=== PATIENT | male | born 1980 | race African-American/Black ===

== ENCOUNTER 2018-07-01 14:39 | Outpatient (CLI) | payer OTHER | END 2018-07-01 14:40 | disposition home or self-care (01) | LOC: BICRAD 14:39 | PROVIDERS: ATTEND Internal Medicine | DX: Z02.71 Encounter for disability determination (principal); I51.7 Cardiomegaly | CPT/HCPCS: 71046 ==

== ENCOUNTER 2021-10-22 15:12 | Inpatient (IN) | payer SELFPAY ==
[2021-10-22 15:59] LABS: #Eosinphils 0.1 thou/uL (0.0-0.7); #Lymphocytes 1.6 thou/uL (1.20-3.40); #Monocytes 0.7 thou/uL (0.11-0.59); #Neutrophils 4.3 thou/uL (1.40-6.50); %Basophils 0.3 % (0.0-1.0); %Eosinophils 1.6 % (0.0-10.0); %Lymphocytes 24.1 % (21.0-51.0); %Monocytes 10.2 % (0.0-10.0); %Neutrophils 63.9 % (42.0-75.0); Hemoglobin 14.4 g/dL (14.0-18.0); Mean Corpuscular HGB CONC 31.5 g/dL (32.0-36.0); Mean Corpuscular Hemoglobin 30.3 pg (27.0-31.0); Mean Corpuscular Volume 96.4 fL (78.0-98.0); Mean Platelet Volume 7.7 fL (7.4-10.4); Platelet Count 226 thou/uL (130-400); RBC Distribution Width 12.6 % (11.5-14.5); Red Blood Cell (RBC) Count 4.74 mill/uL (4.70-6.10); White Blood Cell (WBC) Count 6.7 thou/uL (4.8-10.8)
[2021-10-22 16:19] LABS: ALT (SGPT) 30 U/L (8-55); AST (SGOT) 31 U/L (5-34); Albumin 3.2 g/dL (3.5-5.0); Alkaline Phosphatase 73 U/L (40-110); Anion Gap 11 mmol/L (10-20); BUN (Urea Nitrogen) 17 mg/dL (8.9-20.6); Calc. Creatinine Clearance 0 mL/min (70-130); Calcium 9.1 mg/dL (7.8-10.44); Carbon Dioxide 26 mmol/L (22-29); Chloride 109 mmol/L (98-107); Globulin 3.3 g/dL (2.4-3.5); Glucose 152 mg/dL (70-105); Potassium 3.9 mmol/L (3.5-5.1); Protein, Total 6.5 g/dL (6.0-8.3); Sodium 142 mmol/L (136-145)
[2021-10-22 16:23] LABS: CKMB 2.3 ng/mL (0-6.6)
[2021-10-22] MEDS ORDERED: Furosemide 40 MG/4 ML VIAL ONE (17:49)
[2021-10-22] MEDS ORDERED: Nitroglycerin 2% Ointment 1 INCH/1 GM Packet ONE (17:49)
[2021-10-22] MEDS ORDERED: Acetaminophen 500 MG TAB ONE (18:51)
[2021-10-22] MEDS ORDERED: Morphine 4 MG/ML VIAL ONE (19:30)
[2021-10-22] MEDS ORDERED: Ondansetron PF 4 MG/2 ML Vial ONE (19:30)
[2021-10-22] MEDS ORDERED: Acetaminophen 325 MG TAB PO PRN (20:05)
[2021-10-22] MEDS ORDERED: Ondansetron PF 4 MG/2 ML Vial IVP PRN (20:05)
[2021-10-22 21:27] LABS: Troponin I 0.055 ng/mL (< 0.028)
[2021-10-22] MEDS: hydrALAZINE 20 MG/ML VIAL SLOW IVP PRN (22:21)
[2021-10-22 22:57] VITALS: BMI 38.9
[2021-10-22] MEDS ORDERED: hydrALAZINE 20 MG/ML VIAL SLOW IVP SCH (23:45)
[2021-10-23 00:17] LABS: Troponin I 0.076 ng/mL (< 0.028)
[2021-10-23] MEDS ORDERED: Lorazepam 2 MG/ML VIAL SLOW IVP PRN (03:14)
[2021-10-23] MEDS: hydrALAZINE 20 MG/ML VIAL SLOW IVP PRN ×2 (04:37→13:45)
[2021-10-23 04:56] LABS: #Eosinphils 0.1 thou/uL (0.0-0.7); #Lymphocytes 1.8 thou/uL (1.20-3.40); #Monocytes 0.7 thou/uL (0.11-0.59); %Basophils 0.3 % (0.0-1.0); %Lymphocytes 27.5 % (21.0-51.0); %Monocytes 9.8 % (0.0-10.0); %Neutrophils 60.4 % (42.0-75.0); Hemoglobin 14.7 g/dL (14.0-18.0); Mean Corpuscular HGB CONC 32.4 g/dL (32.0-36.0); Mean Corpuscular Hemoglobin 31.5 pg (27.0-31.0); Mean Corpuscular Volume 97.1 fL (78.0-98.0); Mean Platelet Volume 7.9 fL (7.4-10.4); Platelet Count 216 thou/uL (130-400); RBC Distribution Width 12.7 % (11.5-14.5); Red Blood Cell (RBC) Count 4.66 mill/uL (4.70-6.10); White Blood Cell (WBC) Count 6.7 thou/uL (4.8-10.8)
[2021-10-23 05:03] LABS: Hemoglobin A1c 6.7 % (4.0-6.0)
[2021-10-23] MEDS: Furosemide 40 MG/4 ML VIAL SLOW IVP SCH ×2 (05:12→14:47)
[2021-10-23 05:24] LABS: Troponin I 0.054 ng/mL (< 0.028)
[2021-10-23 05:28] LABS: Anion Gap 10 mmol/L (10-20); BUN (Urea Nitrogen) 18 mg/dL (8.9-20.6); Calc. Creatinine Clearance 144 mL/min (70-130); Carbon Dioxide 28 mmol/L (22-29); Chloride 110 mmol/L (98-107); Glucose 153 mg/dL (70-105); Potassium 3.5 mmol/L (3.5-5.1); Sodium 144 mmol/L (136-145)
[2021-10-23 06:25] LABS: Amphetamine Not Detected (NotDetected); Barbiturates Screen Not Detected (NotDetected); Benzodiazepine Screen Not Detected (NotDetected); Cocaine Metabolite Screen Detected (NotDetected); Methadone Not Detected (NotDetected); Methamphetamine Not Detected (NotDetected); Opiate Screen Not Detected (NotDetected); Oxycodone Screen Not Detected (NotDetected); Phencyclidine (PCP) Not Detected (NotDetected); THC/Cannabinoid Screen Not Detected (NotDetected); Tricyclic Screen Not Detected (NotDetected)
[2021-10-23] MEDS: Amlodipine 10 MG TAB PO SCH (08:58)
[2021-10-23] MEDS: Enoxaparin Sodium 40 MG/0.4 ML SYRINGE SC SCH (08:58)
[2021-10-23] MEDS: Folic Acid 1 MG TAB PO SCH (08:58)
[2021-10-23] MEDS: Thiamine 100 MG TAB PO SCH (08:58)
[2021-10-23] MEDS: chlordiazePOXIDE HCl 25 MG CAP PO SCH ×3 (09:07→21:08)
[2021-10-23 14:11] LABS: SARS-CoV-2 PCR by NAA Not Detected (NotDetected)
[2021-10-23] MEDS ORDERED: cloNIDine 0.1 MG TAB PO SCH ×2 (15:00→21:00)
[2021-10-23] MEDS ORDERED: Spironolactone 25 MG TAB PO SCH (16:45)
[2021-10-24] MEDS: Furosemide 40 MG/4 ML VIAL SLOW IVP SCH ×2 (05:24→13:39)
[2021-10-24] MEDS ORDERED: Spironolactone 25 MG TAB PO SCH ×2 (08:00→13:00)
[2021-10-24] MEDS: Amlodipine 10 MG TAB PO SCH (08:11)
[2021-10-24] MEDS: Folic Acid 1 MG TAB PO SCH (08:11)
[2021-10-24] MEDS: Thiamine 100 MG TAB PO SCH (08:12)
[2021-10-24] MEDS: Enoxaparin Sodium 40 MG/0.4 ML SYRINGE SC SCH (08:15)
[2021-10-24] MEDS: chlordiazePOXIDE HCl 25 MG CAP PO SCH ×3 (08:22→20:23)
[2021-10-24 09:01] LABS: #Basophils 0.1 thou/uL (0.0-0.2); #Eosinphils 0.1 thou/uL (0.0-0.7); #Lymphocytes 1.5 thou/uL (1.20-3.40); #Monocytes 0.6 thou/uL (0.11-0.59); #Neutrophils 4.5 thou/uL (1.40-6.50); %Basophils 0.8 % (0.0-1.0); %Eosinophils 1.9 % (0.0-10.0); %Lymphocytes 22.4 % (21.0-51.0); %Neutrophils 65.8 % (42.0-75.0); Hemoglobin 15.2 g/dL (14.0-18.0); Mean Corpuscular HGB CONC 31.9 g/dL (32.0-36.0); Mean Corpuscular Volume 97.2 fL (78.0-98.0); Mean Platelet Volume 7.5 fL (7.4-10.4); Platelet Count 240 thou/uL (130-400); RBC Distribution Width 12.5 % (11.5-14.5); Red Blood Cell (RBC) Count 4.91 mill/uL (4.70-6.10); White Blood Cell (WBC) Count 6.9 thou/uL (4.8-10.8)
[2021-10-24 09:28] LABS: Anion Gap 13 mmol/L (10-20); BUN (Urea Nitrogen) 11 mg/dL (8.9-20.6); Calc. Creatinine Clearance 159 mL/min (70-130); Carbon Dioxide 25 mmol/L (22-29); Chloride 107 mmol/L (98-107); Glucose 148 mg/dL (70-105); Potassium 3.8 mmol/L (3.5-5.1); Sodium 141 mmol/L (136-145)
[2021-10-25 04:54] LABS: #Basophils 0.1 thou/uL (0.0-0.2); #Eosinphils 0.2 thou/uL (0.0-0.7); #Lymphocytes 1.9 thou/uL (1.20-3.40); #Monocytes 0.8 thou/uL (0.11-0.59); #Neutrophils 4.4 thou/uL (1.40-6.50); %Basophils 0.8 % (0.0-1.0); %Eosinophils 2.9 % (0.0-10.0); %Lymphocytes 25.4 % (21.0-51.0); %Monocytes 10.2 % (0.0-10.0); %Neutrophils 60.7 % (42.0-75.0); Hemoglobin 15.2 g/dL (14.0-18.0); Mean Corpuscular HGB CONC 32.6 g/dL (32.0-36.0); Mean Corpuscular Hemoglobin 31.5 pg (27.0-31.0); Mean Corpuscular Volume 96.5 fL (78.0-98.0); Mean Platelet Volume 7.9 fL (7.4-10.4); Platelet Count 236 thou/uL (130-400); RBC Distribution Width 12.4 % (11.5-14.5); Red Blood Cell (RBC) Count 4.82 mill/uL (4.70-6.10); White Blood Cell (WBC) Count 7.3 thou/uL (4.8-10.8)
[2021-10-25 05:08] LABS: Anion Gap 11 mmol/L (10-20); BUN (Urea Nitrogen) 13 mg/dL (8.9-20.6); Calc. Creatinine Clearance 157 mL/min (70-130); Calcium 8.7 mg/dL (7.8-10.44); Carbon Dioxide 24 mmol/L (22-29); Chloride 108 mmol/L (98-107); Glucose 166 mg/dL (70-105); Potassium 3.5 mmol/L (3.5-5.1); Sodium 139 mmol/L (136-145)
[2021-10-25] MEDS: Furosemide 40 MG/4 ML VIAL SLOW IVP SCH ×2 (05:56→16:14)
[2021-10-25] MEDS ORDERED: Spironolactone 25 MG TAB PO SCH (08:00)
[2021-10-25] MEDS ORDERED: FLU VACC QS2021-22(6MOS UP)/PF 60 MCG/0.5 ML SYRINGE IM ONE (09:00)
[2021-10-25] MEDS: chlordiazePOXIDE HCl 25 MG CAP PO SCH ×2 (09:56→16:14)
[2021-10-25] MEDS: Folic Acid 1 MG TAB PO SCH (09:56)
[2021-10-25] MEDS: Thiamine 100 MG TAB PO SCH (09:56)
[2021-10-25] MEDS: Carvedilol 3.125 MG TAB PO SCH ×2 (09:56→16:14)
[2021-10-25] MEDS: Enoxaparin Sodium 40 MG/0.4 ML SYRINGE SC SCH (09:56)
[2021-10-25] MEDS: Amlodipine 10 MG TAB PO SCH (09:58)
[2021-10-25] MEDS ORDERED: hydrALAZINE 25 MG TAB PO SCH ×3 (14:15→21:00)
[2021-10-25 16:21] VITALS: BP 148/98; TEMP 97.6
[2021-10-25] MEDS ORDERED: Carvedilol 3.125 MG TAB PO SCH (18:02)
[2021-10-26] MEDS ORDERED: Furosemide 20 MG TAB PO SCH (09:00)
== END 2021-10-25 18:23 | disposition home or self-care (01) | DRG 291 ==
LOC: ERS 15:12 → 2NO 18:18
PROVIDERS: ADMIT Family Medicine; ATTEND Internal Medicine
DX: I11.0 Hypertensive heart disease with heart failure (principal); I50.33 Acute on chronic diastolic (congestive) heart failure; I24.8 Other forms of acute ischemic heart disease; I43 Cardiomyopathy in diseases classified elsewhere; F17.210 Nicotine dependence, cigarettes, uncomplicated; F10.10 Alcohol abuse, uncomplicated; F14.10 Cocaine abuse, uncomplicated; I16.0 Hypertensive urgency; Z20.822 Contact with and (suspected) exposure to COVID-19; Z88.8 Allergy status to other drugs, medicaments and biological substances; Z91.19 Patient's noncompliance with other medical treatment and regimen; Z91.14 Patient's other noncompliance with medication regimen
CPT/HCPCS: 36415; 36416; 71045; 80048; 80053; 80306; 82553; 83036; 83880; 84484; 85025; 93005; 93306; 96374; 97139; J0360; J1650; J1940; J2270; J2405; U0003; U0005

== ENCOUNTER 2022-03-11 09:46 | Emergency (ER) | payer SELFPAY ==
[2022-03-11] MEDS ORDERED: Furosemide 40 MG/4 ML VIAL ONE (10:34)
[2022-03-11 11:15] LABS: #Basophils 0.1 thou/uL (0.0-0.2); #Eosinphils 0.3 thou/uL (0.0-0.7); #Lymphocytes 1.5 thou/uL (1.20-3.40); #Monocytes 0.6 thou/uL (0.11-0.59); #Neutrophils 3.8 thou/uL (1.40-6.50); %Basophils 1.1 % (0.0-1.0); %Eosinophils 4.5 % (0.0-10.0); %Lymphocytes 24.4 % (21.0-51.0); %Monocytes 9.1 % (0.0-10.0); Hemoglobin 13.6 g/dL (14.0-18.0); Mean Corpuscular HGB CONC 31.6 g/dL (32.0-36.0); Mean Corpuscular Hemoglobin 31.8 pg (27.0-31.0); Mean Platelet Volume 8.7 fL (7.4-10.4); Platelet Count 153 thou/uL (130-400); RBC Distribution Width 13.5 % (11.5-14.5); Red Blood Cell (RBC) Count 4.28 mill/uL (4.70-6.10); White Blood Cell (WBC) Count 6.3 thou/uL (4.8-10.8)
[2022-03-11 11:32] LABS: ALT (SGPT) 27 U/L (8-55); AST (SGOT) 35 U/L (5-34); Albumin 3.4 g/dL (3.5-5.0); Alkaline Phosphatase 55 U/L (40-110); Anion Gap 13 mmol/L (10-20); BUN (Urea Nitrogen) 12 mg/dL (8.9-20.6); Calc. Creatinine Clearance 0 mL/min (70-130); Calcium 8.3 mg/dL (7.8-10.44); Carbon Dioxide 22 mmol/L (22-29); Chloride 111 mmol/L (98-107); Globulin 3.3 g/dL (2.4-3.5); Glucose 234 mg/dL (70-105); Potassium 4.4 mmol/L (3.5-5.1); Protein, Total 6.7 g/dL (6.0-8.3); Sodium 142 mmol/L (136-145)
== END 2022-03-11 12:26 | disposition home or self-care (01) ==
LOC: ERS 09:46
DX: I11.0 Hypertensive heart disease with heart failure (principal); I50.9 Heart failure, unspecified; F14.10 Cocaine abuse, uncomplicated; F10.10 Alcohol abuse, uncomplicated; F17.210 Nicotine dependence, cigarettes, uncomplicated; Z79.899 Other long term (current) drug therapy
CPT/HCPCS: 71045; 80053; 83880; 84484; 85025; 93005; 96374; J1940

== ENCOUNTER 2022-05-12 18:27 | Emergency (ER) | payer SELFPAY ==
[2022-05-12] MEDS ORDERED: Oxymetazoline HCl 0.05% (30 ML BOT) ONE (18:55)
[2022-05-12] MEDS ORDERED: hydrALAZINE 20 MG/ML VIAL ONE (18:56)
[2022-05-12 19:20] LABS: #Eosinphils 0.1 thou/uL (0.0-0.7); #Lymphocytes 1.5 thou/uL (1.20-3.40); #Monocytes 0.8 thou/uL (0.11-0.59); #Neutrophils 4.7 thou/uL (1.40-6.50); %Basophils 0.4 % (0.0-1.0); %Eosinophils 1.9 % (0.0-10.0); %Lymphocytes 20.8 % (21.0-51.0); %Monocytes 10.8 % (0.0-10.0); Hemoglobin 13.1 g/dL (14.0-18.0); Mean Corpuscular HGB CONC 30.5 g/dL (32.0-36.0); Mean Corpuscular Hemoglobin 30.2 pg (27.0-31.0); Mean Corpuscular Volume 98.8 fL (78.0-98.0); Mean Platelet Volume 8.6 fL (7.4-10.4); Platelet Count 169 thou/uL (130-400); RBC Distribution Width 13.3 % (11.5-14.5); Red Blood Cell (RBC) Count 4.33 mill/uL (4.70-6.10); White Blood Cell (WBC) Count 7.1 thou/uL (4.8-10.8)
[2022-05-12 19:27] LABS: PTT 27.4 sec (22.9-36.1)
[2022-05-12 19:28] LABS: INR-International Normal Ratio 1.1; Prothrombin Time 14.2 sec (12.0-14.7)
[2022-05-12 19:37] LABS: ALT (SGPT) 16 U/L (8-55); AST (SGOT) 18 U/L (5-34); Acetaminophen Less than 10.0 mcg/mL (10.0-30.0); Albumin 3.5 g/dL (3.5-5.0); Alcohol Less than 10 mg/dL (Less than 10); Alkaline Phosphatase 66 U/L (40-110); Anion Gap 16 mmol/L (10-20); BUN (Urea Nitrogen) 22 mg/dL (8.9-20.6); Bilirubin, Total 0.6 mg/dL (0.2-1.2); Calc. Creatinine Clearance 0 mL/min (70-130); Calcium 8.7 mg/dL (7.8-10.44); Carbon Dioxide 20 mmol/L (22-29); Chloride 110 mmol/L (98-107); Estimated GFR 73; Globulin 2.9 g/dL (2.4-3.5); Glucose 124 mg/dL (70-105); Potassium 3.8 mmol/L (3.5-5.1); Protein, Total 6.4 g/dL (6.0-8.3); Salicylate Less than 8.0 mg/dL (15.0-30.0); Sodium 142 mmol/L (136-145)
== END 2022-05-12 22:55 | disposition left against medical advice (07) ==
LOC: ERS 18:27
DX: R04.0 Epistaxis (principal); I11.0 Hypertensive heart disease with heart failure; I50.9 Heart failure, unspecified; F17.210 Nicotine dependence, cigarettes, uncomplicated; Z79.899 Other long term (current) drug therapy
CPT/HCPCS: 36415; 80053; 80307; 85025; 85610; 85730; 96361; 96374; J0360

== ENCOUNTER 2022-05-13 03:11 | Emergency (ER) | payer SELFPAY ==
[2022-05-13 05:53] LABS: #Basophils 0.1 thou/uL (0.0-0.2); #Eosinphils 0.1 thou/uL (0.0-0.7); #Lymphocytes 2.7 thou/uL (1.20-3.40); #Monocytes 1.1 thou/uL (0.11-0.59); #Neutrophils 5.8 thou/uL (1.40-6.50); %Basophils 0.6 % (0.0-1.0); %Eosinophils 1.5 % (0.0-10.0); %Lymphocytes 27.2 % (21.0-51.0); %Monocytes 11.7 % (0.0-10.0); Hemoglobin 13.8 g/dL (14.0-18.0); Mean Corpuscular HGB CONC 30.6 g/dL (32.0-36.0); Mean Corpuscular Hemoglobin 29.7 pg (27.0-31.0); Mean Corpuscular Volume 96.9 fL (78.0-98.0); Mean Platelet Volume 8.7 fL (7.4-10.4); Platelet Count 199 thou/uL (130-400); RBC Distribution Width 13.6 % (11.5-14.5); Red Blood Cell (RBC) Count 4.65 mill/uL (4.70-6.10); White Blood Cell (WBC) Count 9.7 thou/uL (4.8-10.8)
[2022-05-13] MEDS ORDERED: Lidocaine 1% PF 5 ML VIAL ONE (06:04)
[2022-05-13] MEDS ORDERED: Lidocaine 1% w/Epinephrine 1:200K 30 ML VIAL FS SCH (06:15)
== END 2022-05-13 07:05 | disposition home or self-care (01) ==
LOC: ERS 03:11
DX: R04.0 Epistaxis (principal); I11.0 Hypertensive heart disease with heart failure; I50.9 Heart failure, unspecified; F17.210 Nicotine dependence, cigarettes, uncomplicated; Z79.899 Other long term (current) drug therapy
CPT/HCPCS: 30903; 30905; 36415; 85025

== ENCOUNTER 2022-05-13 19:05 | Emergency (ER) | payer SELFPAY ==
[2022-05-13] MEDS ORDERED: Oxymetazoline HCl 0.05% (30 ML BOT) ONE ×2 (20:26→20:27)
== END 2022-05-13 21:16 | disposition home or self-care (01) ==
LOC: ERS 19:05
DX: R04.0 Epistaxis (principal); I11.0 Hypertensive heart disease with heart failure; I50.9 Heart failure, unspecified; F17.210 Nicotine dependence, cigarettes, uncomplicated; Z79.899 Other long term (current) drug therapy

== ENCOUNTER 2022-09-19 08:21 | Inpatient (IN) | payer SELFPAY ==
[2022-09-19] MEDS ORDERED: Aspirin Chewable 81 MG TAB ONE (08:50)
[2022-09-19] MEDS ORDERED: Furosemide 40 MG/4 ML VIAL ONE (08:50)
[2022-09-19] MEDS ORDERED: Nitroglycerin 2% Ointment 1 INCH/1 GM Packet ONE (08:50)
[2022-09-19 09:48] LABS: ALT (SGPT) 36 U/L (8-55); AST (SGOT) 30 U/L (5-34); Albumin 3.2 g/dL (3.5-5.0); Alkaline Phosphatase 134 U/L (40-110); Anion Gap 14 mmol/L (10-20); BUN (Urea Nitrogen) 19 mg/dL (8.9-20.6); Bilirubin, Total 0.9 mg/dL (0.2-1.2); Calc. Creatinine Clearance 0 mL/min (70-130); Calcium 8.7 mg/dL (7.8-10.44); Carbon Dioxide 21 mmol/L (22-29); Chloride 108 mmol/L (98-107); Estimated GFR 61; Globulin 3.7 g/dL (2.4-3.5); Glucose 143 mg/dL (70-105); Potassium 4.3 mmol/L (3.5-5.1); Protein, Total 6.9 g/dL (6.0-8.3); Sodium 139 mmol/L (136-145)
[2022-09-19 10:06] LABS: Hemoglobin 11.7 g/dL (14.0-18.0); Mean Corpuscular HGB CONC 29.9 g/dL (32.0-36.0); Mean Corpuscular Hemoglobin 24.6 pg (27.0-31.0); Mean Corpuscular Volume 82.4 fl (78.0-98.0); Mean Platelet Volume 8.7 fL (7.4-10.4); Platelet Count 263 10x3/uL (130-400); RBC Distribution Width 17.3 % (11.5-14.5); Red Blood Cell (RBC) Count 4.74 mill/uL (4.70-6.10)
[2022-09-19 11:06] LABS: #Eosinphils 0.2 thou/uL (0.0-0.7); #Lymphocytes 1.8 thou/uL (1.20-3.40); #Neutrophils 4.1 thou/uL (1.40-6.50); %Basophils 0.6 % (0.0-1.0); %Eosinophils 2.5 % (0.0-10.0); %Lymphocytes 25.3 % (21.0-51.0); %Monocytes 13.8 % (0.0-10.0); %Neutrophils 57.9 % (42.0-75.0); Hypochromia SLIGHT = 6-15 cells (100X) (0-5/hpf); MDiff Complete? YES; Ovalocytes SLIGHT = 2-5 cells (100X) (0-1/hpf); Platelet Morphology Comment Appears Adequate
[2022-09-19] MEDS ORDERED: hydrALAZINE 25 MG TAB PO SCH (12:15)
[2022-09-19] MEDS ORDERED: Isosorbide Dinitrate 20 MG TAB PO SCH (12:30)
[2022-09-19 12:37] VITALS: BMI 39.2
[2022-09-19] MEDS ORDERED: Nitroglycerin 50 MG/250 ML BOT 250 ML IVPB SCH (13:15)
[2022-09-19] MEDS ORDERED: Labetalol HCl 100 MG/20 ML VIAL SLOW IVP SCH (13:45)
[2022-09-19] MEDS: Furosemide 40 MG/4 ML VIAL SLOW IVP SCH (14:28)
[2022-09-19 14:44] LABS: Amphetamine Not Detected (NotDetected); Barbiturates Screen Not Detected (NotDetected); Benzodiazepine Screen Not Detected (NotDetected); Cocaine Metabolite Screen Detected (NotDetected); Methadone Not Detected (NotDetected); Methamphetamine Not Detected (NotDetected); Opiate Screen Not Detected (NotDetected); Oxycodone Screen Not Detected (NotDetected); Phencyclidine (PCP) Not Detected (NotDetected); THC/Cannabinoid Screen Not Detected (NotDetected); Tricyclic Screen Not Detected (NotDetected)
[2022-09-19 15:08] LABS: SARS-CoV-2 NAA Rapid Test Not Detected (NotDetected)
[2022-09-19] MEDS: hydrALAZINE 25 MG TAB PO SCH ×2 (15:22→20:48)
[2022-09-19] MEDS: Heparin 5,000 UNITS/ML VIAL SC SCH ×2 (15:22→21:07)
[2022-09-19] MEDS: Isosorbide Dinitrate 20 MG TAB PO SCH ×2 (15:23→21:07)
[2022-09-19 16:38] LABS: Troponin I 0.017 ng/mL (< 0.028)
[2022-09-19] MEDS ORDERED: hydrALAZINE 20 MG/ML VIAL SLOW IVP PRN (20:55)
[2022-09-19] MEDS ORDERED: Carvedilol 3.125 MG TAB PO SCH (21:00)
[2022-09-19] MEDS ORDERED: Carvedilol 25 MG TAB PO SCH ×2 (21:00)
[2022-09-19] MEDS ORDERED: Amlodipine 5 MG TAB PO SCH (21:00)
[2022-09-19] MEDS: Acetaminophen 325 MG TAB PO PRN (23:45)
[2022-09-20] MEDS: Furosemide 40 MG/4 ML VIAL SLOW IVP SCH ×2 (05:27→14:52)
[2022-09-20 05:29] LABS: Anion Gap 12 mmol/L (10-20); BUN (Urea Nitrogen) 21 mg/dL (8.9-20.6); Calc. Creatinine Clearance 154 mL/min (70-130); Calcium 9.1 mg/dL (7.8-10.44); Carbon Dioxide 26 mmol/L (22-29); Chloride 106 mmol/L (98-107); Estimated GFR 73; Glucose 137 mg/dL (70-105); Sodium 140 mmol/L (136-145)
[2022-09-20] MEDS: Isosorbide Dinitrate 20 MG TAB PO SCH ×3 (08:48→20:32)
[2022-09-20] MEDS: Aspirin 81 mg Enteric Coated Tablet PO SCH (08:48)
[2022-09-20] MEDS: Heparin 5,000 UNITS/ML VIAL SC SCH ×3 (08:48→20:29)
[2022-09-20] MEDS ORDERED: Metoprolol Tartrate 5 MG/5 ML VIAL IVP PRN (09:00)
[2022-09-20] MEDS: hydrALAZINE 25 MG TAB PO SCH ×3 (09:01→20:32)
[2022-09-20] MEDS: Acetaminophen 325 MG TAB PO PRN (09:22)
[2022-09-20] MEDS: Nitroglycerin 2% Ointment 1 INCH/1 GM Packet TOP SCH ×2 (09:24→20:32)
[2022-09-20] MEDS: Amlodipine 5 MG TAB PO SCH (10:24)
[2022-09-20] MEDS ORDERED: Carvedilol 6.25 MG TAB PO SCH (17:00)
[2022-09-21] MEDS: Furosemide 40 MG/4 ML VIAL SLOW IVP SCH ×3 (05:34→19:48)
[2022-09-21 05:42] LABS: #Eosinphils 0.3 thou/uL (0.0-0.7); #Lymphocytes 1.5 thou/uL (1.20-3.40); #Monocytes 0.6 thou/uL (0.11-0.59); %Basophils 0.3 % (0.0-1.0); %Eosinophils 4.2 % (0.0-10.0); %Lymphocytes 23.8 % (21.0-51.0); %Monocytes 9.5 % (0.0-10.0); %Neutrophils 62.2 % (42.0-75.0); Hemoglobin 10.8 g/dL (14.0-18.0); Mean Corpuscular Hemoglobin 22.9 pg (27.0-31.0); Mean Corpuscular Volume 81.7 fl (78.0-98.0); Mean Platelet Volume 8.9 fL (7.4-10.4); Platelet Count 250 10x3/uL (130-400); RBC Distribution Width 17.6 % (11.5-14.5); White Blood Cell (WBC) Count 6.4 10x3/uL (4.8-10.8)
[2022-09-21 06:00] LABS: ALT (SGPT) 29 U/L (8-55); AST (SGOT) 26 U/L (5-34); Albumin 3.3 g/dL (3.5-5.0); Alkaline Phosphatase 109 U/L (40-110); Anion Gap 12 mmol/L (10-20); BUN (Urea Nitrogen) 19 mg/dL (8.9-20.6); Bilirubin, Total 1.1 mg/dL (0.2-1.2); Calc. Creatinine Clearance 108 mL/min (70-130); Calcium 8.8 mg/dL (7.8-10.44); Carbon Dioxide 28 mmol/L (22-29); Chloride 102 mmol/L (98-107); Estimated GFR 75; Globulin 3.8 g/dL (2.4-3.5); Glucose 119 mg/dL (70-105); Potassium 3.9 mmol/L (3.5-5.1); Protein, Total 7.1 g/dL (6.0-8.3); Sodium 138 mmol/L (136-145)
[2022-09-21] MEDS: Aspirin 81 mg Enteric Coated Tablet PO SCH (09:14)
[2022-09-21] MEDS: Carvedilol 25 MG TAB PO SCH ×2 (09:14→17:12)
[2022-09-21] MEDS: Heparin 5,000 UNITS/ML VIAL SC SCH ×3 (09:14→19:49)
[2022-09-21] MEDS: Amlodipine 5 MG TAB PO SCH (09:14)
[2022-09-21] MEDS: Nitroglycerin 2% Ointment 1 INCH/1 GM Packet TOP SCH ×2 (09:15→19:53)
[2022-09-21] MEDS: Losartan 25 MG TAB PO SCH (10:54)
[2022-09-21] MEDS ORDERED: Amlodipine 5 MG TAB PO SCH (11:45)
[2022-09-22] MEDS: Furosemide 40 MG/4 ML VIAL SLOW IVP SCH ×3 (04:47→22:41)
[2022-09-22 05:41] LABS: Anion Gap 11 mmol/L (10-20); BUN (Urea Nitrogen) 22 mg/dL (8.9-20.6); Calc. Creatinine Clearance 138 mL/min (70-130); Calcium 8.9 mg/dL (7.8-10.44); Carbon Dioxide 28 mmol/L (22-29); Chloride 103 mmol/L (98-107); Estimated GFR 68; Glucose 136 mg/dL (70-105); Sodium 138 mmol/L (136-145)
[2022-09-22] MEDS: Losartan 25 MG TAB PO SCH (08:29)
[2022-09-22] MEDS: Aspirin 81 mg Enteric Coated Tablet PO SCH (08:29)
[2022-09-22] MEDS: Amlodipine 5 MG TAB PO SCH (08:29)
[2022-09-22] MEDS: Carvedilol 25 MG TAB PO SCH ×2 (08:29→17:39)
[2022-09-22] MEDS: Heparin 5,000 UNITS/ML VIAL SC SCH ×3 (08:30→22:41)
[2022-09-22] MEDS: Nitroglycerin 2% Ointment 1 INCH/1 GM Packet TOP SCH ×2 (08:30→22:41)
[2022-09-22] MEDS: Ibuprofen 200 MG TAB PO PRN (15:27)
[2022-09-22] MEDS ORDERED: Metolazone 5 MG TAB PO SCH (17:45)
[2022-09-23] MEDS: Furosemide 40 MG/4 ML VIAL SLOW IVP SCH ×3 (04:50→19:59)
[2022-09-23 05:44] LABS: Anion Gap 14 mmol/L (10-20); BUN (Urea Nitrogen) 25 mg/dL (8.9-20.6); Calc. Creatinine Clearance 131 mL/min (70-130); Calcium 9.3 mg/dL (7.8-10.44); Carbon Dioxide 28 mmol/L (22-29); Chloride 99 mmol/L (98-107); Estimated GFR 65; Glucose 132 mg/dL (70-105); Potassium 3.6 mmol/L (3.5-5.1); Sodium 137 mmol/L (136-145)
[2022-09-23] MEDS: Ibuprofen 200 MG TAB PO PRN (06:25)
[2022-09-23] MEDS: Carvedilol 25 MG TAB PO SCH ×2 (09:20→16:32)
[2022-09-23] MEDS: Aspirin 81 mg Enteric Coated Tablet PO SCH (09:21)
[2022-09-23] MEDS: Heparin 5,000 UNITS/ML VIAL SC SCH ×3 (09:21→19:59)
[2022-09-23] MEDS: Amlodipine 5 MG TAB PO SCH (09:21)
[2022-09-23] MEDS: Metolazone 5 MG TAB PO SCH (09:21)
[2022-09-23] MEDS: Losartan 25 MG TAB PO SCH (09:22)
[2022-09-23] MEDS: Nitroglycerin 2% Ointment 1 INCH/1 GM Packet TOP SCH ×2 (09:22→19:59)
[2022-09-23] MEDS: Acetaminophen 325 MG TAB PO PRN (11:29)
[2022-09-23] MEDS ORDERED: Potassium Chloride 20 MEQ TAB PO SCH (21:45)
[2022-09-24] MEDS: Furosemide 40 MG/4 ML VIAL SLOW IVP SCH (04:28)
[2022-09-24] MEDS: Ibuprofen 200 MG TAB PO PRN (04:28)
[2022-09-24 06:02] LABS: Anion Gap 15 mmol/L (10-20); BUN (Urea Nitrogen) 25 mg/dL (8.9-20.6); Calc. Creatinine Clearance 121 mL/min (70-130); Calcium 9.4 mg/dL (7.8-10.44); Carbon Dioxide 27 mmol/L (22-29); Chloride 95 mmol/L (98-107); Estimated GFR 63; Glucose 139 mg/dL (70-105); Potassium 4.1 mmol/L (3.5-5.1); Sodium 133 mmol/L (136-145)
[2022-09-24] MEDS ORDERED: Potassium Chloride 20 MEQ TAB PO SCH (08:00)
[2022-09-24 08:06] VITALS: TEMP 97.5
[2022-09-24] MEDS: Metolazone 5 MG TAB PO SCH (09:22)
[2022-09-24] MEDS: Carvedilol 25 MG TAB PO SCH (09:22)
[2022-09-24] MEDS: Amlodipine 5 MG TAB PO SCH (09:23)
[2022-09-24] MEDS: Aspirin 81 mg Enteric Coated Tablet PO SCH (09:23)
[2022-09-24] MEDS: Nitroglycerin 2% Ointment 1 INCH/1 GM Packet TOP SCH (09:23)
[2022-09-24] MEDS: Losartan 25 MG TAB PO SCH (09:23)
[2022-09-24] MEDS: Heparin 5,000 UNITS/ML VIAL SC SCH (09:23)
[2022-09-24 11:39] VITALS: BP 121/75
[2022-09-24] MEDS ORDERED: Furosemide 40 MG/4 ML VIAL SLOW IVP SCH (14:00)
== END 2022-09-24 11:55 | disposition home or self-care (01) | DRG 291 ==
LOC: ERS 08:21 → ERHOLD 11:25 → 2SW 12:11
PROVIDERS: ADMIT Family Medicine; ATTEND Family Medicine
DX: I11.0 Hypertensive heart disease with heart failure (principal); I50.43 Acute on chronic combined systolic (congestive) and diastolic (congestive) heart failure; F14.10 Cocaine abuse, uncomplicated; F17.210 Nicotine dependence, cigarettes, uncomplicated; E66.01 Morbid (severe) obesity due to excess calories; Z79.899 Other long term (current) drug therapy; Z88.8 Allergy status to other drugs, medicaments and biological substances; Z68.35 Body mass index [BMI] 35.0-35.9, adult; Z91.14 Patient's other noncompliance with medication regimen
CPT/HCPCS: 36415; 71045; 80048; 80053; 80306; 82550; 83880; 84484; 85025; 93005; 93306; 94760; 96374; 97139; J1644; J1940

== ENCOUNTER 2022-12-13 23:19 | Inpatient (IN) | payer BC, OTHER, SELFPAY ==
[2022-12-13 23:56] LABS: #Eosinphils 0.1 thou/uL (0.0-0.7); #Lymphocytes 1.4 thou/uL (1.20-3.40); #Monocytes 0.7 thou/uL (0.11-0.59); #Neutrophils 3.2 thou/uL (1.40-6.50); %Basophils 0.5 % (0.0-1.0); %Eosinophils 2.4 % (0.0-10.0); %Lymphocytes 26.3 % (21.0-51.0); %Monocytes 12.2 % (0.0-10.0); %Neutrophils 58.6 % (42.0-75.0); Hemoglobin 11.8 g/dL (14.0-18.0); Mean Corpuscular HGB CONC 29.6 g/dL (32.0-36.0); Mean Corpuscular Hemoglobin 24.4 pg (27.0-31.0); Mean Corpuscular Volume 82.4 fl (78.0-98.0); Platelet Count 253 10x3/uL (130-400); RBC Distribution Width 21.3 % (11.5-14.5); Red Blood Cell (RBC) Count 4.85 mill/uL (4.70-6.10); White Blood Cell (WBC) Count 5.5 10x3/uL (4.8-10.8)
[2022-12-14] MEDS ORDERED: Furosemide 40 MG/4 ML VIAL ONE ×2 (00:09→06:41)
[2022-12-14 00:23] LABS: SARS-CoV-2 NAA Rapid Test Not Detected (NotDetected)
[2022-12-14 00:39] LABS: CKMB 2.5 ng/mL (0-6.6)
[2022-12-14 01:25] LABS: Bacteria/HPF None Seen HPF (None Seen); Bilirubin Negative (Negative); Blood, Urine Negative (Negative); Clarity Clear (Clear); Glucose, Urine (Dipstick) Normal (Negative); Ketone, Urine Negative (Negative); Leukocyte Negative Leu/uL (Negative); Nitrite Negative (Negative); Protein, Urine (Dipstick) 100 mg/dL (Neg-Trace); RBC/HPF 0-3 HPF (0-3); Squamous Epithelial None Seen HPF (0-3); Urobilinogen Normal mg/dL (Less than 2); WBC/HPF 0-3 HPF (0-3); pH, Urine 6.5 (5.0-9.0)
[2022-12-14 02:15] LABS: Albumin 3.1 g/dL (3.5-5.0)
[2022-12-14 02:16] LABS: Chloride 102 mmol/L (98-107); Potassium 3.6 mmol/L (3.5-5.1); Sodium 138 mmol/L (136-145)
[2022-12-14 02:17] LABS: Glucose 113 mg/dL (70-105)
[2022-12-14 02:18] LABS: Globulin 4.5 g/dL (2.4-3.5); Protein, Total 7.6 g/dL (6.0-8.3)
[2022-12-14 02:19] LABS: Anion Gap 12 mmol/L (10-20); Bilirubin, Total 1.1 mg/dL (0.2-1.2); Carbon Dioxide 28 mmol/L (22-29)
[2022-12-14 02:20] LABS: Alkaline Phosphatase 143 U/L (40-110)
[2022-12-14 02:21] LABS: Calc. Creatinine Clearance 0 mL/min (70-130); Estimated GFR 78
[2022-12-14 02:22] LABS: BUN (Urea Nitrogen) 18 mg/dL (8.9-20.6)
[2022-12-14 02:23] LABS: ALT (SGPT) 19 U/L (8-55); AST (SGOT) 29 U/L (5-34)
[2022-12-14 06:28] LABS: Troponin I 0.039 ng/mL (< 0.028)
[2022-12-14] MEDS ORDERED: Electrolyte Replacement Protocol 1 EACH FS SCH (07:00)
[2022-12-14] MEDS ORDERED: Electrolyte Replacement Protocol FS PRN (07:30)
[2022-12-14] MEDS ORDERED: Metoclopramide HCl 10 MG/2 ML VIAL IVP PRN (07:54)
[2022-12-14 08:01] LABS: Anion Gap 13 mmol/L (10-20); BUN (Urea Nitrogen) 19 mg/dL (8.9-20.6); Calc. Creatinine Clearance 0 mL/min (70-130); Calcium 8.6 mg/dL (7.8-10.44); Carbon Dioxide 26 mmol/L (22-29); Chloride 102 mmol/L (98-107); Estimated GFR 82; Glucose 125 mg/dL (70-105); Magnesium 1.8 mg/dL (1.6-2.6); Potassium 3.5 mmol/L (3.5-5.1); Sodium 137 mmol/L (136-145)
[2022-12-14 08:07] LABS: Troponin I 0.053 ng/mL (< 0.028)
[2022-12-14] MEDS: Acetaminophen 500 MG TAB PO PRN (08:09)
[2022-12-14] MEDS ORDERED: Acetaminophen 500 MG TAB ONE (08:10)
[2022-12-14] MEDS ORDERED: Potassium Chloride 20 MEQ TAB PO SCH (09:00)
[2022-12-14] MEDS: Aspirin 81 mg Enteric Coated Tablet PO SCH (09:11)
[2022-12-14] MEDS: Carvedilol 6.25 MG TAB PO SCH ×2 (09:11→16:09)
[2022-12-14] MEDS: Losartan 25 MG TAB PO SCH (09:12)
[2022-12-14] MEDS ORDERED: Aspirin 81 mg Enteric Coated Tablet ONE (09:14)
[2022-12-14] MEDS ORDERED: Potassium Chloride 20 MEQ TAB ONE (09:14)
[2022-12-14] MEDS ORDERED: Magnesium 2 GM/50 ML(in water) 2 GM in Premix Bag 1 BAG IVPB SCH (10:00)
[2022-12-14 10:49] VITALS: BMI 40.4
[2022-12-14] MEDS: Furosemide 100 MG/10 ML VIAL SLOW IVP SCH (13:30)
[2022-12-14] MEDS ORDERED: Furosemide 40 MG/4 ML VIAL SLOW IVP SCH (14:00)
[2022-12-14 16:43] LABS: Amphetamine Not Detected (NotDetected); Barbiturates Screen Not Detected (NotDetected); Benzodiazepine Screen Not Detected (NotDetected); Cocaine Metabolite Screen Detected (NotDetected); Methadone Not Detected (NotDetected); Methamphetamine Not Detected (NotDetected); Opiate Screen Not Detected (NotDetected); Oxycodone Screen Not Detected (NotDetected); Phencyclidine (PCP) Not Detected (NotDetected); THC/Cannabinoid Screen Not Detected (NotDetected); Tricyclic Screen Not Detected (NotDetected)
[2022-12-14] MEDS ORDERED: Amlodipine 10 MG TAB PO SCH (19:30)
[2022-12-15 04:51] LABS: #Basophils 0.1 thou/uL (0.0-0.2); #Eosinphils 0.2 thou/uL (0.0-0.7); #Lymphocytes 1.7 thou/uL (1.20-3.40); #Monocytes 0.8 thou/uL (0.11-0.59); #Neutrophils 3.2 thou/uL (1.40-6.50); %Eosinophils 3.6 % (0.0-10.0); %Lymphocytes 27.8 % (21.0-51.0); %Monocytes 13.6 % (0.0-10.0); %Neutrophils 53.9 % (42.0-75.0); Hemoglobin 11.6 g/dL (14.0-18.0); Mean Corpuscular HGB CONC 29.8 g/dL (32.0-36.0); Mean Corpuscular Hemoglobin 24.7 pg (27.0-31.0); Mean Corpuscular Volume 82.9 fl (78.0-98.0); Mean Platelet Volume 8.9 fL (7.4-10.4); Platelet Count 248 10x3/uL (130-400); RBC Distribution Width 19.5 % (11.5-14.5); Red Blood Cell (RBC) Count 4.69 mill/uL (4.70-6.10); White Blood Cell (WBC) Count 5.9 10x3/uL (4.8-10.8)
[2022-12-15 05:10] LABS: Anion Gap 11 mmol/L (10-20); BUN (Urea Nitrogen) 21 mg/dL (8.9-20.6); Calc. Creatinine Clearance 146 mL/min (70-130); Calcium 8.5 mg/dL (7.8-10.44); Carbon Dioxide 26 mmol/L (22-29); Chloride 104 mmol/L (98-107); Estimated GFR 74; Glucose 166 mg/dL (70-105); Potassium 4.1 mmol/L (3.5-5.1); Sodium 137 mmol/L (136-145)
[2022-12-15] MEDS: Furosemide 100 MG/10 ML VIAL SLOW IVP SCH ×2 (05:13→16:47)
[2022-12-15] MEDS: Carvedilol 6.25 MG TAB PO SCH ×2 (09:39→16:47)
[2022-12-15] MEDS: Losartan 25 MG TAB PO SCH ×2 (09:39→20:53)
[2022-12-15] MEDS: Aspirin 81 mg Enteric Coated Tablet PO SCH (09:39)
[2022-12-15] MEDS: Amlodipine 10 MG TAB PO SCH (09:40)
[2022-12-16] MEDS: Furosemide 100 MG/10 ML VIAL SLOW IVP SCH ×2 (05:31→14:59)
[2022-12-16] MEDS: Losartan 25 MG TAB PO SCH (09:12)
[2022-12-16] MEDS: Carvedilol 6.25 MG TAB PO SCH ×2 (09:12→18:02)
[2022-12-16] MEDS: Aspirin 81 mg Enteric Coated Tablet PO SCH (09:12)
[2022-12-16] MEDS: Amlodipine 10 MG TAB PO SCH (09:13)
[2022-12-16] MEDS: Sacubitril 49 MG/Valsartan 51 MG TABLET PO SCH (21:39)
[2022-12-16] MEDS: Acetaminophen 500 MG TAB PO PRN (23:10)
[2022-12-17] MEDS: Acetaminophen 500 MG TAB PO PRN ×2 (03:11→09:36)
[2022-12-17] MEDS: Furosemide 100 MG/10 ML VIAL SLOW IVP SCH ×2 (05:40→15:53)
[2022-12-17] MEDS ORDERED: Empagliflozin 10 MG TAB PO SCH (09:00)
[2022-12-17] MEDS: Carvedilol 6.25 MG TAB PO SCH ×2 (09:35→16:07)
[2022-12-17] MEDS: Aspirin 81 mg Enteric Coated Tablet PO SCH (09:36)
[2022-12-17] MEDS: Sacubitril 49 MG/Valsartan 51 MG TABLET PO SCH (09:38)
[2022-12-17] MEDS: Spironolactone 25 MG TAB PO SCH (09:38)
[2022-12-17] MEDS: Losartan 25 MG TAB PO SCH (20:15)
[2022-12-18] MEDS: Furosemide 100 MG/10 ML VIAL SLOW IVP SCH ×2 (05:43→14:39)
[2022-12-18] MEDS: Acetaminophen 500 MG TAB PO PRN ×2 (05:49→20:24)
[2022-12-18] MEDS ORDERED: Spironolactone 25 MG TAB PO SCH ×2 (08:44→09:00)
[2022-12-18] MEDS: Isosorbide Dinitrate 5 MG TAB PO SCH ×2 (09:05→20:24)
[2022-12-18] MEDS: Aspirin 81 mg Enteric Coated Tablet PO SCH (09:05)
[2022-12-18] MEDS: Losartan 25 MG TAB PO SCH ×2 (09:06→20:23)
[2022-12-18] MEDS: Carvedilol 6.25 MG TAB PO SCH ×2 (09:06→16:09)
[2022-12-18] MEDS: Spironolactone 25 MG TAB PO SCH (09:09)
[2022-12-19] MEDS: Furosemide 100 MG/10 ML VIAL SLOW IVP SCH ×2 (05:30→15:23)
[2022-12-19 09:37] LABS: #Basophils 0.1 thou/uL (0.0-0.2); #Eosinphils 0.2 thou/uL (0.0-0.7); #Lymphocytes 1.8 thou/uL (1.20-3.40); #Monocytes 0.9 thou/uL (0.11-0.59); #Neutrophils 3.2 thou/uL (1.40-6.50); %Basophils 1.6 % (0.0-1.0); %Eosinophils 2.9 % (0.0-10.0); %Lymphocytes 28.8 % (21.0-51.0); %Monocytes 14.7 % (0.0-10.0); Hemoglobin 12.9 g/dL (14.0-18.0); Mean Corpuscular HGB CONC 30.7 g/dL (32.0-36.0); Mean Corpuscular Hemoglobin 25.1 pg (27.0-31.0); Mean Corpuscular Volume 81.8 fl (78.0-98.0); Platelet Count 252 10x3/uL (130-400); RBC Distribution Width 19.1 % (11.5-14.5); Red Blood Cell (RBC) Count 5.14 mill/uL (4.70-6.10); White Blood Cell (WBC) Count 6.2 10x3/uL (4.8-10.8)
[2022-12-19] MEDS: Isosorbide Dinitrate 5 MG TAB PO SCH ×2 (09:48→20:53)
[2022-12-19] MEDS: Carvedilol 6.25 MG TAB PO SCH ×2 (09:48→17:21)
[2022-12-19] MEDS: Losartan 25 MG TAB PO SCH ×2 (09:50→20:53)
[2022-12-19] MEDS: Spironolactone 25 MG TAB PO SCH (09:51)
[2022-12-19] MEDS: Acetaminophen 500 MG TAB PO PRN ×2 (09:51→23:16)
[2022-12-19] MEDS: Aspirin 81 mg Enteric Coated Tablet PO SCH (09:52)
[2022-12-19 09:58] LABS: Anion Gap 11 mmol/L (10-20); BUN (Urea Nitrogen) 25 mg/dL (8.9-20.6); Calc. Creatinine Clearance 120 mL/min (70-130); Calcium 9.1 mg/dL (7.8-10.44); Carbon Dioxide 30 mmol/L (22-29); Chloride 101 mmol/L (98-107); Estimated GFR 64; Glucose 142 mg/dL (70-105); Sodium 138 mmol/L (136-145)
[2022-12-19] MEDS ORDERED: Isosorbide Dinitrate 5 MG TAB PO SCH (15:02)
[2022-12-20] MEDS: Losartan 25 MG TAB PO SCH (08:55)
[2022-12-20] MEDS: Carvedilol 6.25 MG TAB PO SCH (08:57)
[2022-12-20] MEDS: Isosorbide Dinitrate 5 MG TAB PO SCH (08:58)
[2022-12-20] MEDS: Spironolactone 25 MG TAB PO SCH (08:58)
[2022-12-20] MEDS: Aspirin 81 mg Enteric Coated Tablet PO SCH (09:00)
[2022-12-20] MEDS ORDERED: Furosemide 20 MG TAB PO SCH (09:00)
[2022-12-20 12:23] VITALS: BP 165/108; TEMP 97.4
== END 2022-12-20 11:30 | disposition home or self-care (01) | DRG 291 ==
LOC: ERS 23:19 → ERHOLD 12-14 03:02 → 2NO 12-14 10:10
PROVIDERS: ADMIT Student in an Organized Health Care Education/Training Program; ATTEND Internal Medicine
DX: I11.0 Hypertensive heart disease with heart failure (principal); I50.43 Acute on chronic combined systolic (congestive) and diastolic (congestive) heart failure; F14.10 Cocaine abuse, uncomplicated; F17.210 Nicotine dependence, cigarettes, uncomplicated; R94.31 Abnormal electrocardiogram [ECG] [EKG]; I34.0 Nonrheumatic mitral (valve) insufficiency; E66.9 Obesity, unspecified; I42.0 Dilated cardiomyopathy; Z88.8 Allergy status to other drugs, medicaments and biological substances; Z79.899 Other long term (current) drug therapy; Z68.36 Body mass index [BMI] 36.0-36.9, adult
CPT/HCPCS: 36415; 71045; 80048; 80053; 80306; 81003; 81015; 82553; 83735; 83880; 84443; 84484; 85025; 93005; 93306; 96374; 96376; 97139; J1650; J1940; J3475; U0002

== ENCOUNTER 2023-06-13 09:24 | Inpatient (IN) | payer BC, OTHER, SELFPAY ==
[2023-06-13] MEDS ORDERED: Aspirin Chewable 81 MG TAB ONE (09:54)
[2023-06-13] MEDS ORDERED: Furosemide 40 MG/4 ML VIAL ONE (09:54)
[2023-06-13 10:07] LABS: #Eosinphils 0.2 thou/uL (0.0-0.7); #Monocytes 0.6 thou/uL (0.11-0.59); #Neutrophils 3.7 thou/uL (1.40-6.50); %Basophils 0.5 % (0.0-1.0); %Eosinophils 2.9 % (0.0-10.0); %Lymphocytes 27.4 % (21.0-51.0); %Monocytes 9.3 % (0.0-10.0); %Neutrophils 59.7 % (42.0-75.0); Hematocrit 41.5 % (42.0-52.0); Hemoglobin 11.9 g/dL (14.0-18.0); Mean Corpuscular HGB CONC 28.7 g/dL (32.0-36.0); Mean Corpuscular Hemoglobin 24.2 pg (27.0-31.0); Mean Corpuscular Volume 84.5 fl (78.0-98.0); Mean Platelet Volume 9.7 fL (7.4-10.4); Platelet Count 246 10x3/uL (130-400); RBC Distribution Width 21.2 % (11.5-14.5); Red Blood Cell (RBC) Count 4.91 mill/uL (4.70-6.10); White Blood Cell (WBC) Count 6.3 10x3/uL (4.8-10.8)
[2023-06-13 10:34] LABS: Troponin I 0.106 ng/mL (< 0.028)
[2023-06-13 10:37] LABS: ALT (SGPT) 47 U/L (8-55); AST (SGOT) 58 U/L (5-34); Albumin 2.9 g/dL (3.5-5.0); Alkaline Phosphatase 142 U/L (40-110); Anion Gap 12 mmol/L (10-20); BUN (Urea Nitrogen) 21 mg/dL (8.9-20.6); Bilirubin, Total 0.9 mg/dL (0.2-1.2); Calc. Creatinine Clearance 0 mL/min (70-130); Calcium 8.8 mg/dL (7.8-10.44); Carbon Dioxide 23 mmol/L (22-29); Chloride 107 mmol/L (98-107); Estimated GFR 47; Globulin 4.9 g/dL (2.4-3.5); Glucose 233 mg/dL (70-105); Lipase 82 U/L (8-78); Potassium 4.3 mmol/L (3.5-5.1); Protein, Total 7.8 g/dL (6.0-8.3); Sodium 138 mmol/L (136-145)
[2023-06-13 10:45] LABS: Anisocytosis MODERATE=16-30 cells HPF (0-5); Burr Cells SLIGHT = 2-5 cells HPF (0-1); CellaVision Operator ID LAB.NR; Macrocytosis MODERATE=16-30 cells HPF (0-5); Platelet Adequacy Comment Platelets Normal; Polychromasia SLIGHT = 2-3 cells HPF (0-2)
[2023-06-13] MEDS ORDERED: niCARdipine 25 MG/10 ML SDV ONE (11:25)
[2023-06-13] MEDS ORDERED: cloNIDine 0.1 MG TAB ONE (11:50)
[2023-06-13] MEDS ORDERED: Acetaminophen 500 MG TAB ONE (11:50)
[2023-06-13] MEDS ORDERED: Electrolyte Replacement Protocol 1 EACH FS SCH (12:00)
[2023-06-13 13:24] VITALS: BMI 37.7
[2023-06-13 14:05] LABS: Troponin I 0.096 ng/mL (< 0.028)
[2023-06-13] MEDS ORDERED: hydrALAZINE 25 MG TAB PO SCH (15:00)
[2023-06-13 15:39] LABS: Bacteria/HPF None Seen HPF (None Seen); Bilirubin Negative (Negative); Blood, Urine Negative (Negative); Clarity Clear (Clear); Glucose, Urine (Dipstick) Normal (Negative); Ketone, Urine Negative (Negative); Leukocyte Negative Leu/uL (Negative); Nitrite Negative (Negative); Protein, Urine (Dipstick) 100 mg/dL (Neg-Trace); RBC/HPF 0-3 HPF (0-3); Specific Gravity, Urine 1.013 (1.002-1.036); Squamous Epithelial 0-3 HPF (0-3); WBC/HPF 0-3 HPF (0-3); pH, Urine 5.5 (5.0-9.0)
[2023-06-13] MEDS ORDERED: Furosemide 40 MG/4 ML VIAL SLOW IVP SCH (16:00)
[2023-06-13 17:06] LABS: Troponin I 0.077 ng/mL (< 0.028)
[2023-06-13] MEDS: hydrALAZINE 25 MG TAB PO SCH (20:37)
[2023-06-13] MEDS: Isosorbide Dinitrate 20 MG TAB PO SCH (20:37)
[2023-06-13] MEDS: Acetaminophen 500 MG TAB PO PRN (21:05)
[2023-06-14 05:45] LABS: #Eosinphils 0.3 thou/uL (0.0-0.7); #Monocytes 0.6 thou/uL (0.11-0.59); #Neutrophils 3.9 thou/uL (1.40-6.50); %Basophils 0.5 % (0.0-1.0); %Eosinophils 4.1 % (0.0-10.0); %Lymphocytes 26.8 % (21.0-51.0); %Monocytes 9.2 % (0.0-10.0); %Neutrophils 59.1 % (42.0-75.0); Hematocrit 38.6 % (42.0-52.0); Hemoglobin 11.2 g/dL (14.0-18.0); Mean Corpuscular Hemoglobin 24.2 pg (27.0-31.0); Mean Corpuscular Volume 83.4 fl (78.0-98.0); Mean Platelet Volume 9.4 fL (7.4-10.4); Platelet Count 227 10x3/uL (130-400); RBC Distribution Width 20.8 % (11.5-14.5); Red Blood Cell (RBC) Count 4.63 mill/uL (4.70-6.10); White Blood Cell (WBC) Count 6.6 10x3/uL (4.8-10.8)
[2023-06-14 06:02] LABS: Anion Gap 13 mmol/L (10-20); BUN (Urea Nitrogen) 22 mg/dL (8.9-20.6); Calc. Creatinine Clearance 122 mL/min (70-130); Calcium 8.2 mg/dL (7.8-10.44); Carbon Dioxide 25 mmol/L (22-29); Chloride 103 mmol/L (98-107); Estimated GFR 58; Glucose 180 mg/dL (70-105); Potassium 3.2 mmol/L (3.5-5.1); Sodium 138 mmol/L (136-145)
[2023-06-14] MEDS: Furosemide 40 MG/4 ML VIAL SLOW IVP SCH ×2 (06:40→15:11)
[2023-06-14] MEDS ORDERED: Potassium Chloride 20 MEQ TAB PO SCH (08:00)
[2023-06-14] MEDS: hydrALAZINE 25 MG TAB PO SCH ×3 (10:44→20:04)
[2023-06-14] MEDS: Aspirin 81 mg Enteric Coated Tablet PO SCH (10:45)
[2023-06-14] MEDS: Isosorbide Dinitrate 20 MG TAB PO SCH ×3 (10:46→20:06)
[2023-06-14] MEDS: cloNIDine 0.1 MG TAB PO PRN ×2 (10:53→23:09)
[2023-06-14] MEDS: Acetaminophen 500 MG TAB PO PRN (20:04)
[2023-06-15] MEDS ORDERED: Ondansetron PF 4 MG/2 ML Vial IVP PRN (04:42)
[2023-06-15] MEDS ORDERED: Ondansetron ODT 4 MG TAB PO PRN (04:42)
[2023-06-15] MEDS: Furosemide 40 MG/4 ML VIAL SLOW IVP SCH ×2 (05:04→13:40)
[2023-06-15] MEDS: cloNIDine 0.1 MG TAB PO PRN (05:15)
[2023-06-15] MEDS: Aspirin 81 mg Enteric Coated Tablet PO SCH (09:37)
[2023-06-15] MEDS: hydrALAZINE 25 MG TAB PO SCH ×3 (09:37→20:07)
[2023-06-15] MEDS: Isosorbide Dinitrate 20 MG TAB PO SCH (09:38)
[2023-06-15 10:32] LABS: Amphetamine Not Detected (NotDetected); Barbiturates Screen Not Detected (NotDetected); Benzodiazepine Screen Not Detected (NotDetected); Cocaine Metabolite Screen Detected (NotDetected); Methadone Not Detected (NotDetected); Methamphetamine Not Detected (NotDetected); Opiate Screen Not Detected (NotDetected); Oxycodone Screen Not Detected (NotDetected); Phencyclidine (PCP) Not Detected (NotDetected); THC/Cannabinoid Screen Not Detected (NotDetected); Tricyclic Screen Not Detected (NotDetected)
[2023-06-15 10:44] LABS: #Eosinphils 0.2 thou/uL (0.0-0.7); #Monocytes 0.6 thou/uL (0.11-0.59); #Neutrophils 3.9 thou/uL (1.40-6.50); %Basophils 0.4 % (0.0-1.0); %Eosinophils 2.5 % (0.0-10.0); %Lymphocytes 30.1 % (21.0-51.0); %Monocytes 8.6 % (0.0-10.0); %Neutrophils 57.7 % (42.0-75.0); Hematocrit 39.5 % (42.0-52.0); Hemoglobin 11.7 g/dL (14.0-18.0); Mean Corpuscular HGB CONC 29.6 g/dL (32.0-36.0); Mean Corpuscular Volume 80.9 fl (78.0-98.0); Mean Platelet Volume 9.5 fL (7.4-10.4); Platelet Count 208 10x3/uL (130-400); RBC Distribution Width 20.7 % (11.5-14.5); Red Blood Cell (RBC) Count 4.88 mill/uL (4.70-6.10); White Blood Cell (WBC) Count 6.7 10x3/uL (4.8-10.8)
[2023-06-15 11:05] LABS: Anion Gap 11 mmol/L (10-20); BUN (Urea Nitrogen) 22 mg/dL (8.9-20.6); Calc. Creatinine Clearance 132 mL/min (70-130); Calcium 8.7 mg/dL (7.8-10.44); Carbon Dioxide 24 mmol/L (22-29); Estimated GFR 62; Glucose 122 mg/dL (70-105)
[2023-06-15 11:28] LABS: Chloride 103 mmol/L (98-107); Potassium 3.3 mmol/L (3.5-5.1); Sodium 135 mmol/L (136-145)
[2023-06-15] MEDS ORDERED: Potassium Chloride 20 MEQ TAB PO SCH (12:15)
[2023-06-15] MEDS: Acetaminophen 500 MG TAB PO PRN (19:41)
[2023-06-16] MEDS: cloNIDine 0.1 MG TAB PO PRN (00:33)
[2023-06-16] MEDS: Furosemide 40 MG/4 ML VIAL SLOW IVP SCH (06:14)
[2023-06-16] MEDS ORDERED: Carvedilol 25 MG TAB PO SCH (09:00)
[2023-06-16] MEDS: Aspirin 81 mg Enteric Coated Tablet PO SCH (09:17)
[2023-06-16] MEDS: hydrALAZINE 25 MG TAB PO SCH ×3 (09:18→19:50)
[2023-06-16] MEDS: Furosemide 100 MG/10 ML VIAL SLOW IVP SCH (14:48)
[2023-06-16] MEDS: Acetaminophen 500 MG TAB PO PRN (19:50)
[2023-06-16] MEDS: Carvedilol 6.25 MG TAB PO SCH (19:50)
[2023-06-17] MEDS: Acetaminophen 500 MG TAB PO PRN ×3 (02:55→22:14)
[2023-06-17] MEDS: Furosemide 100 MG/10 ML VIAL SLOW IVP SCH ×2 (05:02→14:10)
[2023-06-17] MEDS: cloNIDine 0.1 MG TAB PO PRN (06:51)
[2023-06-17] MEDS: Aspirin 81 mg Enteric Coated Tablet PO SCH (08:44)
[2023-06-17] MEDS: hydrALAZINE 25 MG TAB PO SCH ×3 (08:45→20:02)
[2023-06-17] MEDS ORDERED: Potassium Bicarbonate/Cit Ac 20 MEQ TAB PO SCH (08:45)
[2023-06-17] MEDS ORDERED: Potassium Chloride 20 MEQ TAB PO SCH (08:45)
[2023-06-17] MEDS: Carvedilol 6.25 MG TAB PO SCH ×2 (08:45→20:02)
[2023-06-17] MEDS: Apixaban 5 MG TAB PO SCH (20:06)
[2023-06-18] MEDS: cloNIDine 0.1 MG TAB PO PRN (04:41)
[2023-06-18] MEDS: Furosemide 100 MG/10 ML VIAL SLOW IVP SCH ×2 (04:41→13:47)
[2023-06-18] MEDS: Acetaminophen 500 MG TAB PO PRN (04:45)
[2023-06-18 05:13] LABS: Anion Gap 22 mmol/L (10-20); BUN (Urea Nitrogen) 29 mg/dL (8.9-20.6); Calc. Creatinine Clearance 108 mL/min (70-130); Calcium 8.9 mg/dL (7.8-10.44); Carbon Dioxide 22 mmol/L (22-29); Chloride 99 mmol/L (98-107); Estimated GFR 49; Glucose 127 mg/dL (70-105); Potassium 4.2 mmol/L (3.5-5.1); Sodium 139 mmol/L (136-145)
[2023-06-18] MEDS: Apixaban 5 MG TAB PO SCH ×2 (09:47→21:21)
[2023-06-18] MEDS: hydrALAZINE 25 MG TAB PO SCH ×3 (09:47→21:22)
[2023-06-18] MEDS: Aspirin 81 mg Enteric Coated Tablet PO SCH (09:47)
[2023-06-18] MEDS: Carvedilol 6.25 MG TAB PO SCH ×2 (09:48→21:21)
[2023-06-18] MEDS ORDERED: HYDROcodone/Acetaminophen 5/325 mg Tablet PO PRN (12:57)
[2023-06-18] MEDS: traMADol HCl 50 MG TAB PO PRN (15:10)
[2023-06-18] MEDS ORDERED: DOBUTamine 500 mg/250 ml 250 ML IVPB SCH (15:15)
[2023-06-18] MEDS ORDERED: traMADol HCl 50 MG TAB PO PRN (20:15)
[2023-06-19] MEDS: traMADol HCl 50 MG TAB PO PRN (01:22)
[2023-06-19] MEDS: Acetaminophen 325 MG TAB PO PRN ×2 (03:54→15:52)
[2023-06-19] MEDS: Furosemide 100 MG/10 ML VIAL SLOW IVP SCH ×2 (06:02→14:10)
[2023-06-19] MEDS: Apixaban 5 MG TAB PO SCH ×2 (09:41→21:33)
[2023-06-19] MEDS: Aspirin 81 mg Enteric Coated Tablet PO SCH (09:41)
[2023-06-19] MEDS: hydrALAZINE 25 MG TAB PO SCH ×3 (09:41→21:34)
[2023-06-19] MEDS: Carvedilol 6.25 MG TAB PO SCH (09:42)
[2023-06-19] MEDS ORDERED: Metolazone 5 MG TAB PO SCH (13:00)
[2023-06-19 14:01] LABS: Anion Gap 13 mmol/L (10-20); BUN (Urea Nitrogen) 30 mg/dL (8.9-20.6); Calc. Creatinine Clearance 117 mL/min (70-130); Carbon Dioxide 25 mmol/L (22-29); Chloride 103 mmol/L (98-107); Estimated GFR 54; Glucose 123 mg/dL (70-105); Potassium 4.1 mmol/L (3.5-5.1); Sodium 137 mmol/L (136-145)
[2023-06-19] MEDS: Carvedilol 25 MG TAB PO SCH (21:34)
[2023-06-19] MEDS ORDERED: traMADol HCl 50 MG TAB PO SCH (22:00)
[2023-06-20] MEDS: Furosemide 100 MG/10 ML VIAL SLOW IVP SCH (05:11)
[2023-06-20 05:39] LABS: Hematocrit 40.1 % (42.0-52.0); Hemoglobin 11.6 g/dL (14.0-18.0); Mean Corpuscular HGB CONC 28.9 g/dL (32.0-36.0); Mean Corpuscular Hemoglobin 24.3 pg (27.0-31.0); Mean Corpuscular Volume 83.9 fl (78.0-98.0); Platelet Count 252 10x3/uL (130-400); RBC Distribution Width 20.8 % (11.5-14.5); Red Blood Cell (RBC) Count 4.78 mill/uL (4.70-6.10); White Blood Cell (WBC) Count 6.3 10x3/uL (4.8-10.8)
[2023-06-20 06:01] LABS: Anion Gap 14 mmol/L (10-20); BUN (Urea Nitrogen) 32 mg/dL (8.9-20.6); Calc. Creatinine Clearance 100 mL/min (70-130); Calcium 9.3 mg/dL (7.8-10.44); Carbon Dioxide 25 mmol/L (22-29); Chloride 100 mmol/L (98-107); Estimated GFR 45; Glucose 112 mg/dL (70-105); Sodium 135 mmol/L (136-145)
[2023-06-20] MEDS: Acetaminophen 325 MG TAB PO PRN (06:06)
[2023-06-20] MEDS ORDERED: Metolazone 5 MG TAB PO SCH (08:30)
[2023-06-20] MEDS: Apixaban 5 MG TAB PO SCH ×2 (08:43→20:55)
[2023-06-20] MEDS: hydrALAZINE 25 MG TAB PO SCH ×3 (08:43→20:55)
[2023-06-20] MEDS: Carvedilol 25 MG TAB PO SCH ×2 (08:43→20:56)
[2023-06-20] MEDS: NIFEdipine XL 30 MG TAB PO SCH (08:43)
[2023-06-20] MEDS: Aspirin 81 mg Enteric Coated Tablet PO SCH (08:43)
[2023-06-20] MEDS: Gabapentin 300 MG CAP PO SCH ×3 (11:02→20:58)
[2023-06-20] MEDS: traMADol HCl 50 MG TAB PO PRN (11:03)
[2023-06-20] MEDS ORDERED: Colchicine 0.6 MG TAB PO SCH (13:30)
[2023-06-20] MEDS: Furosemide 40 MG/4 ML VIAL SLOW IVP SCH (14:20)
[2023-06-21] MEDS: Acetaminophen 325 MG TAB PO PRN (04:05)
[2023-06-21 05:19] LABS: Anion Gap 16 mmol/L (10-20); BUN (Urea Nitrogen) 35 mg/dL (8.9-20.6); Calc. Creatinine Clearance 104 mL/min (70-130); Calcium 9.5 mg/dL (7.8-10.44); Carbon Dioxide 23 mmol/L (22-29); Chloride 96 mmol/L (98-107); Estimated GFR 48; Glucose 192 mg/dL (70-105); Sodium 131 mmol/L (136-145); Uric Acid 11.6 mg/dL (3.5-7.2)
[2023-06-21] MEDS: Furosemide 40 MG/4 ML VIAL SLOW IVP SCH ×2 (05:29→14:12)
[2023-06-21 08:13] LABS: #Eosinphils 0.2 thou/uL (0.0-0.7); #Monocytes 0.9 thou/uL (0.11-0.59); #Neutrophils 3.3 thou/uL (1.40-6.50); %Basophils 0.4 % (0.0-1.0); %Eosinophils 2.8 % (0.0-10.0); %Monocytes 16.2 % (0.0-10.0); Hematocrit 41.4 % (42.0-52.0); Hemoglobin 12.4 g/dL (14.0-18.0); Mean Corpuscular Hemoglobin 24.4 pg (27.0-31.0); Mean Corpuscular Volume 81.5 fl (78.0-98.0); Mean Platelet Volume 10.6 fL (7.4-10.4); Platelet Count 208 10x3/uL (130-400); RBC Distribution Width 20.9 % (11.5-14.5); Red Blood Cell (RBC) Count 5.08 mill/uL (4.70-6.10); White Blood Cell (WBC) Count 5.4 10x3/uL (4.8-10.8)
[2023-06-21] MEDS: Gabapentin 300 MG CAP PO SCH ×2 (08:44→20:44)
[2023-06-21] MEDS: Carvedilol 25 MG TAB PO SCH ×2 (08:44→20:44)
[2023-06-21] MEDS: Apixaban 5 MG TAB PO SCH ×2 (08:44→20:44)
[2023-06-21] MEDS: Aspirin 81 mg Enteric Coated Tablet PO SCH (08:44)
[2023-06-21] MEDS: Metolazone 5 MG TAB PO SCH (08:44)
[2023-06-21] MEDS: NIFEdipine XL 30 MG TAB PO SCH (08:45)
[2023-06-21] MEDS: hydrALAZINE 25 MG TAB PO SCH ×3 (08:45→20:44)
[2023-06-21] MEDS: Losartan 25 MG TAB PO SCH (08:45)
[2023-06-21] MEDS: Colchicine 0.6 MG TAB PO SCH (20:44)
[2023-06-22] MEDS: traMADol HCl 50 MG TAB PO PRN (02:06)
[2023-06-22] MEDS: Furosemide 40 MG/4 ML VIAL SLOW IVP SCH ×2 (05:45→14:02)
[2023-06-22 06:34] LABS: #Eosinphils 0.2 thou/uL (0.0-0.7); #Neutrophils 4.1 thou/uL (1.40-6.50); %Basophils 0.5 % (0.0-1.0); %Eosinophils 3.2 % (0.0-10.0); %Lymphocytes 16.7 % (21.0-51.0); %Monocytes 15.6 % (0.0-10.0); %Neutrophils 63.7 % (42.0-75.0); Hematocrit 39.8 % (42.0-52.0); Mean Corpuscular HGB CONC 30.2 g/dL (32.0-36.0); Mean Corpuscular Hemoglobin 24.4 pg (27.0-31.0); Mean Corpuscular Volume 81.1 fl (78.0-98.0); Mean Platelet Volume 9.2 fL (7.4-10.4); Platelet Count 243 10x3/uL (130-400); RBC Distribution Width 20.5 % (11.5-14.5); Red Blood Cell (RBC) Count 4.91 mill/uL (4.70-6.10); White Blood Cell (WBC) Count 6.5 10x3/uL (4.8-10.8)
[2023-06-22 07:05] LABS: Anion Gap 12 mmol/L (10-20); BUN (Urea Nitrogen) 45 mg/dL (8.9-20.6); CRP (Inflammatory) Less than 0.50 mg/dL (= or < 0.5); Calc. Creatinine Clearance 102 mL/min (70-130); Calcium 9.5 mg/dL (7.8-10.44); Carbon Dioxide 27 mmol/L (22-29); Chloride 96 mmol/L (98-107); Estimated GFR 47; Glucose 157 mg/dL (70-105); Potassium 3.8 mmol/L (3.5-5.1); Sodium 131 mmol/L (136-145)
[2023-06-22] MEDS: NIFEdipine XL 30 MG TAB PO SCH (07:57)
[2023-06-22] MEDS: Aspirin 81 mg Enteric Coated Tablet PO SCH (07:58)
[2023-06-22] MEDS: Gabapentin 300 MG CAP PO SCH ×2 (07:58→22:00)
[2023-06-22] MEDS: Metolazone 5 MG TAB PO SCH (07:58)
[2023-06-22] MEDS: Colchicine 0.6 MG TAB PO SCH ×2 (07:59→22:00)
[2023-06-22] MEDS: Losartan 25 MG TAB PO SCH (07:59)
[2023-06-22] MEDS: hydrALAZINE 25 MG TAB PO SCH ×3 (07:59→21:54)
[2023-06-22] MEDS: Apixaban 5 MG TAB PO SCH (07:59)
[2023-06-22] MEDS: Carvedilol 25 MG TAB PO SCH ×2 (07:59→21:59)
[2023-06-22] MEDS: Acetaminophen 325 MG TAB PO PRN (11:45)
[2023-06-22 19:20] LABS: Hematocrit 38.5 % (42.0-52.0); Hemoglobin 11.6 g/dL (14.0-18.0); Platelet Count 233 10x3/uL (130-400)
[2023-06-22] MEDS: Pantoprazole 40 MG VIAL IVP SCH (21:54)
[2023-06-23 01:16] LABS: Hematocrit 36.7 % (42.0-52.0); Hemoglobin 11.1 g/dL (14.0-18.0); Platelet Count 250 10x3/uL (130-400)
[2023-06-23] MEDS: traMADol HCl 50 MG TAB PO PRN (02:27)
[2023-06-23] MEDS ORDERED: Furosemide 20 MG TAB PO SCH (09:00)
[2023-06-23] MEDS: Gabapentin 300 MG CAP PO SCH ×2 (09:20→20:01)
[2023-06-23] MEDS: Metolazone 5 MG TAB PO SCH (09:21)
[2023-06-23] MEDS: Carvedilol 25 MG TAB PO SCH ×2 (09:23→20:02)
[2023-06-23] MEDS: NIFEdipine XL 30 MG TAB PO SCH (09:23)
[2023-06-23] MEDS: Furosemide 80 MG TAB PO SCH ×2 (09:23→14:20)
[2023-06-23] MEDS: Losartan 25 MG TAB PO SCH (09:24)
[2023-06-23] MEDS: hydrALAZINE 25 MG TAB PO SCH ×3 (09:24→20:01)
[2023-06-23] MEDS: Colchicine 0.6 MG TAB PO SCH ×2 (09:24→20:02)
[2023-06-23] MEDS: Furosemide 40 MG/4 ML VIAL SLOW IVP SCH (09:25)
[2023-06-23] MEDS: Pantoprazole 40 MG VIAL IVP SCH ×2 (09:25→20:06)
[2023-06-23 10:12] LABS: #Eosinphils 0.4 thou/uL (0.0-0.7); #Monocytes 1.3 thou/uL (0.11-0.59); #Neutrophils 3.7 thou/uL (1.40-6.50); %Basophils 0.5 % (0.0-1.0); %Eosinophils 5.3 % (0.0-10.0); %Lymphocytes 17.7 % (21.0-51.0); %Monocytes 19.1 % (0.0-10.0); %Neutrophils 57.1 % (42.0-75.0); Hemoglobin 11.2 g/dL (14.0-18.0); Mean Corpuscular HGB CONC 30.3 g/dL (32.0-36.0); Mean Corpuscular Hemoglobin 24.5 pg (27.0-31.0); Mean Corpuscular Volume 80.8 fl (78.0-98.0); Mean Platelet Volume 9.5 fL (7.4-10.4); Platelet Count 239 10x3/uL (130-400); RBC Distribution Width 20.2 % (11.5-14.5); Red Blood Cell (RBC) Count 4.58 mill/uL (4.70-6.10); White Blood Cell (WBC) Count 6.6 10x3/uL (4.8-10.8)
[2023-06-23] MEDS ORDERED: Acetaminophen 325 MG/10.15 ML UDCUP ONE (10:22)
[2023-06-23 10:44] LABS: Anion Gap 12 mmol/L (10-20); BUN (Urea Nitrogen) 48 mg/dL (8.9-20.6); Calc. Creatinine Clearance 110 mL/min (70-130); Calcium 8.8 mg/dL (7.8-10.44); Carbon Dioxide 26 mmol/L (22-29); Chloride 95 mmol/L (98-107); Estimated GFR 51; Glucose 148 mg/dL (70-105); Magnesium 2.1 mg/dL (1.6-2.6); Potassium 3.6 mmol/L (3.5-5.1); Sodium 129 mmol/L (136-145)
[2023-06-24 06:06] LABS: #Eosinphils 0.3 thou/uL (0.0-0.7); #Monocytes 1.1 thou/uL (0.11-0.59); #Neutrophils 3.8 thou/uL (1.40-6.50); %Basophils 0.6 % (0.0-1.0); %Eosinophils 3.9 % (0.0-10.0); %Lymphocytes 17.9 % (21.0-51.0); %Monocytes 17.1 % (0.0-10.0); %Neutrophils 60.2 % (42.0-75.0); Hematocrit 36.3 % (42.0-52.0); Mean Corpuscular HGB CONC 30.3 g/dL (32.0-36.0); Mean Corpuscular Hemoglobin 24.2 pg (27.0-31.0); Mean Corpuscular Volume 79.8 fl (78.0-98.0); Mean Platelet Volume 9.5 fL (7.4-10.4); Platelet Count 226 10x3/uL (130-400); Red Blood Cell (RBC) Count 4.55 mill/uL (4.70-6.10); White Blood Cell (WBC) Count 6.3 10x3/uL (4.8-10.8)
[2023-06-24 06:25] LABS: Anion Gap 14 mmol/L (10-20); BUN (Urea Nitrogen) 54 mg/dL (8.9-20.6); Calc. Creatinine Clearance 101 mL/min (70-130); Calcium 8.9 mg/dL (7.8-10.44); Carbon Dioxide 24 mmol/L (22-29); Chloride 93 mmol/L (98-107); Estimated GFR 45; Glucose 223 mg/dL (70-105); Potassium 3.7 mmol/L (3.5-5.1); Sodium 127 mmol/L (136-145)
[2023-06-24] MEDS: hydrALAZINE 25 MG TAB PO SCH ×3 (09:23→21:12)
[2023-06-24] MEDS: Albumin 25% 25 GM/100 ML BOT IVPB SCH ×3 (09:23→22:45)
[2023-06-24] MEDS: Colchicine 0.6 MG TAB PO SCH ×2 (09:24→21:13)
[2023-06-24] MEDS: Metolazone 5 MG TAB PO SCH (09:24)
[2023-06-24] MEDS: Gabapentin 300 MG CAP PO SCH ×2 (09:24→21:13)
[2023-06-24] MEDS: traMADol HCl 50 MG TAB PO PRN (09:24)
[2023-06-24] MEDS: Pantoprazole 40 MG VIAL IVP SCH ×2 (09:25→21:22)
[2023-06-24] MEDS: Furosemide 80 MG TAB PO SCH ×2 (09:25→14:12)
[2023-06-24] MEDS: Losartan 25 MG TAB PO SCH (09:25)
[2023-06-24] MEDS: NIFEdipine XL 30 MG TAB PO SCH (09:25)
[2023-06-24] MEDS: Carvedilol 25 MG TAB PO SCH ×2 (09:25→21:13)
[2023-06-24] MEDS ORDERED: Furosemide 40 MG/4 ML VIAL SLOW IVP SCH (10:00)
[2023-06-24] MEDS: DOBUTamine 500 mg/250 ml 250 ML IVPB SCH (16:00)
[2023-06-24] MEDS: Apixaban 5 MG TAB PO SCH (21:22)
[2023-06-25] MEDS: Albumin 25% 25 GM/100 ML BOT IVPB SCH ×4 (04:43→16:59)
[2023-06-25] MEDS: Furosemide 100 MG/10 ML VIAL SLOW IVP SCH ×2 (05:17→16:21)
[2023-06-25 06:28] LABS: #Basophils 0.1 thou/uL (0.0-0.2); #Eosinphils 0.2 thou/uL (0.0-0.7); #Monocytes 1.1 thou/uL (0.11-0.59); #Neutrophils 3.5 thou/uL (1.40-6.50); %Basophils 0.8 % (0.0-1.0); %Eosinophils 3.4 % (0.0-10.0); %Lymphocytes 19.1 % (21.0-51.0); %Monocytes 18.3 % (0.0-10.0); %Neutrophils 57.9 % (42.0-75.0); Hematocrit 37.6 % (42.0-52.0); Hemoglobin 10.9 g/dL (14.0-18.0); Mean Corpuscular Hemoglobin 24.1 pg (27.0-31.0); Mean Corpuscular Volume 83.2 fl (78.0-98.0); Mean Platelet Volume 9.7 fL (7.4-10.4); Platelet Count 192 10x3/uL (130-400); RBC Distribution Width 20.4 % (11.5-14.5); Red Blood Cell (RBC) Count 4.52 mill/uL (4.70-6.10)
[2023-06-25] MEDS: DOBUTamine 500 mg/250 ml 250 ML IVPB SCH (06:35)
[2023-06-25 06:50] LABS: Anion Gap 17 mmol/L (10-20); BUN (Urea Nitrogen) 55 mg/dL (8.9-20.6); Calc. Creatinine Clearance 97 mL/min (70-130); Calcium 9.2 mg/dL (7.8-10.44); Carbon Dioxide 24 mmol/L (22-29); Chloride 93 mmol/L (98-107); Estimated GFR 42; Glucose 155 mg/dL (70-105); Potassium 3.6 mmol/L (3.5-5.1); Sodium 130 mmol/L (136-145)
[2023-06-25] MEDS ORDERED: Lorazepam 0.5 MG TAB PO PRN (08:33)
[2023-06-25] MEDS: Losartan 25 MG TAB PO SCH (08:35)
[2023-06-25] MEDS: Carvedilol 25 MG TAB PO SCH ×2 (08:36→20:59)
[2023-06-25] MEDS: hydrALAZINE 25 MG TAB PO SCH ×3 (08:36→20:59)
[2023-06-25] MEDS: Gabapentin 300 MG CAP PO SCH ×2 (08:37→20:49)
[2023-06-25] MEDS: traMADol HCl 50 MG TAB PO PRN (08:38)
[2023-06-25] MEDS: Metolazone 5 MG TAB PO SCH (08:38)
[2023-06-25] MEDS: Apixaban 5 MG TAB PO SCH ×2 (08:38→20:49)
[2023-06-25] MEDS: Pantoprazole 40 MG VIAL IVP SCH ×2 (10:42→20:50)
[2023-06-25 11:48] LABS: Amphetamine Not Detected (NotDetected); Barbiturates Screen Not Detected (NotDetected); Benzodiazepine Screen Not Detected (NotDetected); Cocaine Metabolite Screen Not Detected (NotDetected); Methadone Not Detected (NotDetected); Methamphetamine Not Detected (NotDetected); Opiate Screen Not Detected (NotDetected); Oxycodone Screen Not Detected (NotDetected); Phencyclidine (PCP) Not Detected (NotDetected); THC/Cannabinoid Screen Not Detected (NotDetected); Tricyclic Screen Not Detected (NotDetected)
[2023-06-25] MEDS ORDERED: Sodium Chloride 0.9% 250 ML IV SCH (18:30)
[2023-06-26] MEDS: Acetaminophen 325 MG TAB PO PRN (00:27)
[2023-06-26] MEDS: traMADol HCl 50 MG TAB PO PRN ×2 (00:27→10:04)
[2023-06-26 05:51] LABS: #Eosinphils 0.2 thou/uL (0.0-0.7); #Monocytes 1.2 thou/uL (0.11-0.59); #Neutrophils 3.8 thou/uL (1.40-6.50); %Basophils 0.6 % (0.0-1.0); %Eosinophils 3.6 % (0.0-10.0); %Monocytes 18.1 % (0.0-10.0); %Neutrophils 56.4 % (42.0-75.0); Hematocrit 37.5 % (42.0-52.0); Hemoglobin 11.1 g/dL (14.0-18.0); Mean Corpuscular HGB CONC 29.6 g/dL (32.0-36.0); Mean Corpuscular Hemoglobin 24.1 pg (27.0-31.0); Mean Corpuscular Volume 81.3 fl (78.0-98.0); Mean Platelet Volume 9.4 fL (7.4-10.4); Platelet Count 218 10x3/uL (130-400); RBC Distribution Width 19.8 % (11.5-14.5); Red Blood Cell (RBC) Count 4.61 mill/uL (4.70-6.10); White Blood Cell (WBC) Count 6.7 10x3/uL (4.8-10.8)
[2023-06-26 06:16] LABS: Anion Gap 16 mmol/L (10-20); BUN (Urea Nitrogen) 57 mg/dL (8.9-20.6); Calc. Creatinine Clearance 95 mL/min (70-130); Calcium 9.7 mg/dL (7.8-10.44); Carbon Dioxide 26 mmol/L (22-29); Chloride 95 mmol/L (98-107); Estimated GFR 41; Glucose 145 mg/dL (70-105); Potassium 3.7 mmol/L (3.5-5.1); Sodium 133 mmol/L (136-145)
[2023-06-26] MEDS: Apixaban 5 MG TAB PO SCH ×2 (08:29→21:13)
[2023-06-26] MEDS: hydrALAZINE 25 MG TAB PO SCH ×3 (08:29→21:12)
[2023-06-26] MEDS: Carvedilol 25 MG TAB PO SCH ×2 (08:30→21:13)
[2023-06-26] MEDS: Gabapentin 300 MG CAP PO SCH ×2 (08:30→21:12)
[2023-06-26] MEDS: Pantoprazole 40 MG VIAL IVP SCH ×2 (08:32→21:20)
[2023-06-26 08:55] LABS: ALT (SGPT) 23 U/L (8-55); AST (SGOT) 28 U/L (5-34); Albumin 3.9 g/dL (3.5-5.0); Alkaline Phosphatase 180 U/L (40-110); Bilirubin, Direct 0.7 mg/dL (0.1-0.3); Bilirubin, Total 1.1 mg/dL (0.2-1.2); Protein, Total 8.4 g/dL (6.0-8.3)
[2023-06-26] MEDS ORDERED: Spironolactone 100 MG TAB PO SCH (09:30)
[2023-06-26 09:38] LABS: Bacteria/HPF None Seen HPF (None Seen); Bilirubin Negative (Negative); Blood, Urine Negative (Negative); Clarity Clear (Clear); Glucose, Urine (Dipstick) Normal (Negative); Ketone, Urine Negative (Negative); Leukocyte Negative Leu/uL (Negative); Nitrite Negative (Negative); Protein, Urine (Dipstick) 20 mg/dL (Neg-Trace); RBC/HPF 0-3 HPF (0-3); Specific Gravity, Urine 1.013 (1.002-1.036); Squamous Epithelial None Seen HPF (0-3); WBC/HPF 0-3 HPF (0-3)
[2023-06-26] MEDS ORDERED: Metolazone 2.5 MG TAB PO SCH (09:45)
[2023-06-26 09:46] LABS: Creatinine, Urine 87.27 mg/dL (63-166)
[2023-06-26] MEDS: Albumin 25% 25 GM/100 ML BOT IVPB SCH ×2 (14:19→21:13)
[2023-06-27 06:18] LABS: #Eosinphils 0.2 thou/uL (0.0-0.7); #Monocytes 1.2 thou/uL (0.11-0.59); %Basophils 0.7 % (0.0-1.0); %Lymphocytes 20.9 % (21.0-51.0); %Monocytes 21.1 % (0.0-10.0); %Neutrophils 53.9 % (42.0-75.0); Hematocrit 35.3 % (42.0-52.0); Hemoglobin 10.5 g/dL (14.0-18.0); Manual Diff?? YES; Mean Corpuscular HGB CONC 29.7 g/dL (32.0-36.0); Mean Corpuscular Hemoglobin 24.2 pg (27.0-31.0); Mean Corpuscular Volume 81.5 fl (78.0-98.0); Mean Platelet Volume 9.2 fL (7.4-10.4); Platelet Count 184 10x3/uL (130-400); RBC Distribution Width 19.8 % (11.5-14.5); Red Blood Cell (RBC) Count 4.33 mill/uL (4.70-6.10); White Blood Cell (WBC) Count 5.6 10x3/uL (4.8-10.8)
[2023-06-27] MEDS: traMADol HCl 50 MG TAB PO PRN (06:19)
[2023-06-27] MEDS: Acetaminophen 325 MG TAB PO PRN (06:19)
[2023-06-27 06:30] LABS: Hemoglobin A1c 6.9 % (4.0-6.0)
[2023-06-27 06:48] LABS: Albumin 3.9 g/dL (3.5-5.0); Anion Gap 14 mmol/L (10-20); BUN (Urea Nitrogen) 49 mg/dL (8.9-20.6); BUN/Creatinine Ratio 28.32; Calc. Creatinine Clearance 111 mL/min (70-130); Calcium 9.7 mg/dL (7.8-10.44); Carbon Dioxide 29 mmol/L (22-29); Chloride 96 mmol/L (98-107); Estimated GFR 50; Glucose 180 mg/dL (70-105); Phosphorus 3.6 mg/dL (2.3-4.7); Potassium 3.9 mmol/L (3.5-5.1); Sodium 135 mmol/L (136-145)
[2023-06-27 06:51] LABS: Iron 46 ug/dL (65-175); Iron Binding Capacity, Total 415 mcg/dL (261-462)
[2023-06-27 06:55] LABS: Band 3 % (5-11); CellaVision Operator ID LAB.CLH1; Eosinophils 8 % (0-10); Hypochromia SLIGHT = 6-15 cells HPF (0-5); Large Platelets 20.8 % (0-5); Lymphocytes 15 % (21-51); Monocytes 19 % (0-10); Neutrophil 54 % (42-75); Platelet Adequacy Comment Platelets Normal; Polychromasia SLIGHT = 2-3 cells HPF (0-2); Total Cell Count 101
[2023-06-27] MEDS ORDERED: Furosemide 40 MG TAB PO SCH (07:30)
[2023-06-27 08:00] VITALS: BP 152/90; TEMP 98.4
[2023-06-27] MEDS ORDERED: Spironolactone 100 MG TAB PO SCH (08:00)
[2023-06-27] MEDS: Pantoprazole 40 MG VIAL IVP SCH (09:00)
[2023-06-27] MEDS ORDERED: Metolazone 2.5 MG TAB PO SCH (09:00)
[2023-06-27] MEDS: Iron, Sodium Ferric Gluconate 250 MG in Sodium Chloride 0.9% 250 ML 250 ML IVPB SCH ×2 (09:00→09:05)
[2023-06-27] MEDS ORDERED: Isosorbide Dinitrate 20 MG TAB PO SCH (09:00)
[2023-06-27] MEDS: Apixaban 5 MG TAB PO SCH (09:01)
[2023-06-27] MEDS: Carvedilol 25 MG TAB PO SCH (09:01)
[2023-06-27] MEDS: hydrALAZINE 25 MG TAB PO SCH (09:01)
[2023-06-27] MEDS: Gabapentin 300 MG CAP PO SCH (09:02)
== END 2023-06-27 09:50 | disposition home or self-care (01) | DRG 280 ==
LOC: ERS 09:24 → IMCU/EMU 11:23 → 2SW 06-14 05:52
PROVIDERS: ADMIT Family Medicine; ATTEND Family Medicine
PROC: 30233J1 Transfusion of Nonautologous Serum Albumin into Peripheral Vein, Percutaneous Approach (ICD-10-PCS; principal; 2023-06-24)
DX: I13.0 Hypertensive heart and chronic kidney disease with heart failure and stage 1 through stage 4 chronic kidney disease, or unspecified chronic kidney disease (principal); I50.43 Acute on chronic combined systolic (congestive) and diastolic (congestive) heart failure; I21.A1 Myocardial infarction type 2; N17.9 Acute kidney failure, unspecified; I48.92 Unspecified atrial flutter; E87.1 Hypo-osmolality and hyponatremia; F14.10 Cocaine abuse, uncomplicated; F41.9 Anxiety disorder, unspecified; F31.9 Bipolar disorder, unspecified; F17.210 Nicotine dependence, cigarettes, uncomplicated; N18.2 Chronic kidney disease, stage 2 (mild); I16.0 Hypertensive urgency; D63.1 Anemia in chronic kidney disease; E66.01 Morbid (severe) obesity due to excess calories; E87.6 Hypokalemia; S30.821A Blister (nonthermal) of abdominal wall, initial encounter; M10.9 Gout, unspecified; I42.8 Other cardiomyopathies; E88.09 Other disorders of plasma-protein metabolism, not elsewhere classified; R73.9 Hyperglycemia, unspecified; Z71.51 Drug abuse counseling and surveillance of drug abuser; Z88.8 Allergy status to other drugs, medicaments and biological substances; Z68.38 Body mass index [BMI] 38.0-38.9, adult; Z79.82 Long term (current) use of aspirin; Z79.899 Other long term (current) drug therapy; K64.9 Unspecified hemorrhoids
CPT/HCPCS: 36415; 36416; 71045; 76705; 76770; 80048; 80053; 80069; 80076; 80306; 81001; 82570; 82728; 83036; 83540; 83550; 83690; 83735; 83880; 84132; 84156; 84300; 84443; 84484; 84540; 84550; 85025; 85027; 86140; 93005; 93306; 96374; 97139; C9113; J1250; J1650; J1940; J2916; J7030; J7050; P9047

== ENCOUNTER 2023-08-13 15:33 | Inpatient (IN) | payer BC, OTHER ==
[2023-08-13 18:09] LABS: #Eosinphils 0.3 thou/uL (0.0-0.7); #Monocytes 0.9 thou/uL (0.11-0.59); %Basophils 0.5 % (0.0-1.0); %Eosinophils 3.4 % (0.0-10.0); %Lymphocytes 18.4 % (21.0-51.0); %Monocytes 11.4 % (0.0-10.0); %Neutrophils 66.2 % (42.0-75.0); Hematocrit 43.8 % (42.0-52.0); Hemoglobin 13.1 g/dL (14.0-18.0); Mean Corpuscular HGB CONC 29.9 g/dL (32.0-36.0); Mean Corpuscular Hemoglobin 24.8 pg (27.0-31.0); Mean Platelet Volume 10.3 fL (7.4-10.4); Platelet Count 241 10x3/uL (130-400); RBC Distribution Width 21.2 % (11.5-14.5); Red Blood Cell (RBC) Count 5.28 mill/uL (4.70-6.10); White Blood Cell (WBC) Count 7.5 10x3/uL (4.8-10.8)
[2023-08-13 18:39] LABS: ALT (SGPT) 9 U/L (8-55); AST (SGOT) 17 U/L (5-34); Albumin 3.9 g/dL (3.5-5.0); Alkaline Phosphatase 112 U/L (40-110); Anion Gap 13 mmol/L (10-20); BUN (Urea Nitrogen) 26 mg/dL (8.9-20.6); Bilirubin, Total 0.8 mg/dL (0.2-1.2); Calc. Creatinine Clearance 0 mL/min (70-130); Carbon Dioxide 21 mmol/L (22-29); Chloride 108 mmol/L (98-107); Estimated GFR 61; Globulin 3.9 g/dL (2.4-3.5); Glucose 108 mg/dL (70-105); Potassium 3.9 mmol/L (3.5-5.1); Protein, Total 7.8 g/dL (6.0-8.3); Sodium 138 mmol/L (136-145)
[2023-08-13 19:26] LABS: Troponin I 0.024 ng/mL (< 0.028)
[2023-08-13] MEDS ORDERED: Metoclopramide HCl 10 MG/2 ML VIAL IVP PRN (21:04)
[2023-08-13] MEDS ORDERED: cloNIDine 0.1 MG TAB PO PRN (21:16)
[2023-08-13] MEDS ORDERED: Carvedilol 25 MG TAB PO SCH (21:30)
[2023-08-13] MEDS ORDERED: Aspirin Chewable 81 MG TAB PO SCH (21:30)
[2023-08-13 23:09] LABS: Vitamin B12 436 pg/mL (211-911)
[2023-08-13 23:19] LABS: HBSAg Index 0.18 S/CO (0-0.99); HIV (1/2) Antibody/Antigen Non-Reactive (NonReactive); Hep A IgM AB Non-Reactive S/CO (NonReactive); Hep A IgM S/CO 0.17 S/CO (0-0.79); Hep B Surf Ag Non-Reactive S/CO (NonReactive); Hep C IgG Ab Non-Reactive S/CO (NonReactive); Hep C Index 0.12 S/CO (0-0.79); Hepatitis B Core IgM Abs Non-Reactive S/CO (NonReactive)
[2023-08-14] MEDS ORDERED: Furosemide 40 MG/4 ML VIAL ONE (00:24)
[2023-08-14] MEDS ORDERED: Nitroglycerin 2% Ointment 1 INCH/1 GM Packet ONE (00:24)
[2023-08-14] MEDS ORDERED: Aspirin Chewable 81 MG TAB ONE (02:13)
[2023-08-14] MEDS ORDERED: hydrALAZINE 25 MG TAB ONE (02:13)
[2023-08-14] MEDS ORDERED: Carvedilol 25 MG TAB ONE (02:14)
[2023-08-14] MEDS ORDERED: traMADol HCl 50 MG TAB ONE (02:14)
[2023-08-14] MEDS ORDERED: cloNIDine 0.1 MG TAB ONE (02:17)
[2023-08-14] MEDS: Apixaban 5 MG TAB PO SCH ×3 (02:20→20:34)
[2023-08-14] MEDS: hydrALAZINE 25 MG TAB PO SCH ×4 (02:20→20:34)
[2023-08-14] MEDS: traMADol HCl 50 MG TAB PO PRN ×4 (02:20→23:18)
[2023-08-14 06:26] LABS: #Eosinphils 0.3 thou/uL (0.0-0.7); #Monocytes 1.1 thou/uL (0.11-0.59); #Neutrophils 5.1 thou/uL (1.40-6.50); %Basophils 0.5 % (0.0-1.0); %Eosinophils 3.3 % (0.0-10.0); %Lymphocytes 19.8 % (21.0-51.0); %Neutrophils 63.2 % (42.0-75.0); Hematocrit 43.3 % (42.0-52.0); Hemoglobin 12.8 g/dL (14.0-18.0); Mean Corpuscular HGB CONC 29.6 g/dL (32.0-36.0); Mean Corpuscular Hemoglobin 24.8 pg (27.0-31.0); Mean Corpuscular Volume 83.8 fl (78.0-98.0); Platelet Count 239 10x3/uL (130-400); RBC Distribution Width 21.2 % (11.5-14.5); Red Blood Cell (RBC) Count 5.17 mill/uL (4.70-6.10); White Blood Cell (WBC) Count 8.1 10x3/uL (4.8-10.8)
[2023-08-14 06:46] LABS: Anion Gap 12 mmol/L (10-20); BUN (Urea Nitrogen) 23 mg/dL (8.9-20.6); Calc. Creatinine Clearance 0 mL/min (70-130); Calcium 8.9 mg/dL (7.8-10.44); Carbon Dioxide 22 mmol/L (22-29); Chloride 108 mmol/L (98-107); Estimated GFR 70; Glucose 126 mg/dL (70-105); Potassium 3.8 mmol/L (3.5-5.1); Sodium 138 mmol/L (136-145)
[2023-08-14 07:29] VITALS: BMI 32.5
[2023-08-14] MEDS: Carvedilol 25 MG TAB PO SCH ×2 (09:43→16:05)
[2023-08-14] MEDS: Aspirin Chewable 81 MG TAB PO SCH (09:44)
[2023-08-14 12:01] LABS: Bacteria/HPF None Seen HPF (None Seen); Bilirubin Negative (Negative); Blood, Urine Negative (Negative); Clarity Clear (Clear); Glucose, Urine (Dipstick) Normal (Negative); Ketone, Urine Negative (Negative); Leukocyte Negative Leu/uL (Negative); Nitrite Negative (Negative); Protein, Urine (Dipstick) 100 mg/dL (Neg-Trace); RBC/HPF 0-3 HPF (0-3); Specific Gravity, Urine 1.017 (1.002-1.036); Squamous Epithelial None Seen HPF (0-3); Urobilinogen 6 mg/dL (Less than 2); WBC/HPF 0-3 HPF (0-3)
[2023-08-14 12:18] LABS: Amphetamine Not Detected (NotDetected); Barbiturates Screen Not Detected (NotDetected); Benzodiazepine Screen Detected (NotDetected); Cocaine Metabolite Screen Detected (NotDetected); Methadone Not Detected (NotDetected); Methamphetamine Not Detected (NotDetected); Opiate Screen Not Detected (NotDetected); Oxycodone Screen Not Detected (NotDetected); Phencyclidine (PCP) Not Detected (NotDetected); THC/Cannabinoid Screen Not Detected (NotDetected); Tricyclic Screen Not Detected (NotDetected)
[2023-08-14] MEDS ORDERED: FLU VACC QS2023-24(6MOS UP)/PF 60 MCG/0.5 ML SYRINGE IM ONE (16:00)
[2023-08-14] MEDS ORDERED: Colchicine 0.3 MG TAB PO SCH (18:15)
[2023-08-14 18:48] LABS: CRP (Inflammatory) 0.61 mg/dL (= or < 0.5); Uric Acid 10.3 mg/dL (3.5-7.2)
[2023-08-14] MEDS ORDERED: Non-Formulary Item 1 EACH (Hydralazine Hcl [Hydralazine Hcl] 100 MG Tablet) PO SCH (21:00)
[2023-08-15 04:20] LABS: #Eosinphils 0.3 thou/uL (0.0-0.7); #Monocytes 0.8 thou/uL (0.11-0.59); #Neutrophils 4.6 thou/uL (1.40-6.50); %Basophils 0.4 % (0.0-1.0); %Eosinophils 4.4 % (0.0-10.0); %Lymphocytes 21.6 % (21.0-51.0); %Monocytes 10.2 % (0.0-10.0); %Neutrophils 63.1 % (42.0-75.0); Hematocrit 43.3 % (42.0-52.0); Hemoglobin 12.9 g/dL (14.0-18.0); Mean Corpuscular HGB CONC 29.8 g/dL (32.0-36.0); Mean Corpuscular Hemoglobin 24.8 pg (27.0-31.0); Mean Corpuscular Volume 83.1 fl (78.0-98.0); Platelet Count 243 10x3/uL (130-400); RBC Distribution Width 21.1 % (11.5-14.5); Red Blood Cell (RBC) Count 5.21 mill/uL (4.70-6.10); White Blood Cell (WBC) Count 7.3 10x3/uL (4.8-10.8)
[2023-08-15 04:56] LABS: Anion Gap 12 mmol/L (10-20); BUN (Urea Nitrogen) 22 mg/dL (8.9-20.6); Calc. Creatinine Clearance 120 mL/min (70-130); Calcium 9.3 mg/dL (7.8-10.44); Carbon Dioxide 22 mmol/L (22-29); Chloride 105 mmol/L (98-107); Estimated GFR 68; Glucose 127 mg/dL (70-105); Sodium 135 mmol/L (136-145)
[2023-08-15] MEDS: traMADol HCl 50 MG TAB PO PRN ×2 (06:30→16:57)
[2023-08-15] MEDS: Furosemide 40 MG TAB PO SCH (09:44)
[2023-08-15] MEDS: Apixaban 5 MG TAB PO SCH ×2 (09:45→20:15)
[2023-08-15] MEDS: Carvedilol 25 MG TAB PO SCH ×2 (09:45→16:57)
[2023-08-15] MEDS: Spironolactone 100 MG TAB PO SCH (09:45)
[2023-08-15] MEDS: Aspirin Chewable 81 MG TAB PO SCH (09:45)
[2023-08-15] MEDS: Gabapentin 300 MG CAP PO SCH ×3 (09:46→20:20)
[2023-08-15] MEDS: hydrALAZINE 25 MG TAB PO SCH ×3 (09:46→20:15)
[2023-08-15] MEDS: Colchicine 0.3 MG TAB PO SCH ×2 (09:46→20:18)
[2023-08-15] MEDS: Acetaminophen 500 MG TAB PO PRN ×2 (09:50→20:23)
[2023-08-15] MEDS ORDERED: Allopurinol 100 MG TAB PO SCH (14:15)
[2023-08-16] MEDS: traMADol HCl 50 MG TAB PO PRN ×2 (01:25→10:40)
[2023-08-16] MEDS: Furosemide 40 MG TAB PO SCH (06:44)
[2023-08-16] MEDS: Carvedilol 25 MG TAB PO SCH (06:44)
[2023-08-16] MEDS: Spironolactone 100 MG TAB PO SCH (06:44)
[2023-08-16] MEDS ORDERED: Allopurinol 100 MG TAB PO SCH (09:00)
[2023-08-16] MEDS: hydrALAZINE 25 MG TAB PO SCH ×2 (10:39→15:17)
[2023-08-16] MEDS: Apixaban 5 MG TAB PO SCH (10:40)
[2023-08-16] MEDS: Colchicine 0.3 MG TAB PO SCH (10:40)
[2023-08-16] MEDS: Aspirin Chewable 81 MG TAB PO SCH (10:40)
[2023-08-16] MEDS: Gabapentin 300 MG CAP PO SCH (10:42)
[2023-08-16 17:27] VITALS: BP 169/94; TEMP 97.4
[2023-08-17] MEDS ORDERED: FLU VACC QS2023-24(6MOS UP)/PF 60 MCG/0.5 ML SYRINGE IM ONE (09:00)
== END 2023-08-16 18:35 | disposition home or self-care (01) | DRG 291 ==
LOC: ERS 15:33 → 2SW 20:08 → ERHOLD 20:23 → 2SW 08-14 08:08 → OBSVTOIN 08-14 17:51
PROVIDERS: ADMIT Family Medicine; ATTEND Family Medicine
DX: I13.0 Hypertensive heart and chronic kidney disease with heart failure and stage 1 through stage 4 chronic kidney disease, or unspecified chronic kidney disease (principal); I50.43 Acute on chronic combined systolic (congestive) and diastolic (congestive) heart failure; I48.92 Unspecified atrial flutter; N17.9 Acute kidney failure, unspecified; N18.30 Chronic kidney disease, stage 3 unspecified; M10.9 Gout, unspecified; I48.91 Unspecified atrial fibrillation; D63.1 Anemia in chronic kidney disease; M17.11 Unilateral primary osteoarthritis, right knee; I08.1 Rheumatic disorders of both mitral and tricuspid valves; F41.9 Anxiety disorder, unspecified; F17.210 Nicotine dependence, cigarettes, uncomplicated; M25.461 Effusion, right knee; F14.10 Cocaine abuse, uncomplicated; Z91.199 Patient's noncompliance with other medical treatment and regimen due to unspecified reason; Z79.01 Long term (current) use of anticoagulants; Z88.8 Allergy status to other drugs, medicaments and biological substances
CPT/HCPCS: 36415; 71045; 80048; 80053; 80074; 80306; 81001; 82607; 83880; 84484; 84550; 85025; 86140; 87389; 93005; 94760; 96374; 97139; G0378; J1940

== ENCOUNTER 2024-03-18 09:19 | Outpatient (CLI) | payer OTHER | END 2024-03-18 09:20 | disposition home or self-care (01) | LOC: BICRAD 09:19 | PROVIDERS: ATTEND Nurse Practitioner Family | DX: M25.561 Pain in right knee (principal); M17.11 Unilateral primary osteoarthritis, right knee; M25.461 Effusion, right knee ==